=== PATIENT | female | born 1955 | race Caucasian/White ===

== ENCOUNTER 2018-07-01 14:27 | Inpatient (IN) | payer MEDICARE, MEDICAID ==
[~2018-07-01] VITALS: Ht 165.1 cm; Wt 116.8 kg
[~2018-07-01 14:27] MED LIST: AMLO2.5T2 PO; BECL7.3A INH; CETI10CA8 PO; DICY10CA88 PO; EST1T PO; ISOSORBIDE; LANTUS SUBCUT; LEVA15HF4 INH; METH500T PO; OMEP-84 PO; PARO10TA85 PO
[2018-07-01] MEDS ORDERED: morphine 4 MG/ML inj SYRINge IV ONE (14:35)
[2018-07-01] MEDS ORDERED: metoprolol tartrate 1mg/ml inj IV ONE (14:35)
[2018-07-01] MEDS: nitroGLYCERIN 0.4mg SUBLingual tab SL PRN ×2 (14:42→14:51)
[2018-07-01 14:48] LABS: BASOPHILS # (AUTO) 0.1 X10'3 (0-0.2); BASOPHILS % (AUTO) 1.6 % (0-1); EOSINOPHILS # (AUTO) 0.2 X10'3 (0-0.9); EOSINOPHILS % (AUTO) 2.4 % (0-6); HEMATOCRIT 47.2 % (35.0-45.0); HEMOGLOBIN 15.3 g/dl (12.0-16.0); LYMPHOCYTES # (AUTO) 1.4 X10'3 (1.1-4.8); LYMPHOCYTES % (AUTO) 19.4 % (21-51); MEAN CORPUSCULAR HGB CONC 32.4 % (33.0-36.5); MEAN CORPUSCULAR VOLUME 89.6 FL (78-98); MEAN PLATELET VOLUME 9.3 FL (7.4-10.4); MONOCYTES # (AUTO) 0.6 X10'3 (0-0.9); MONOCYTES % (AUTO) 8.2 % (2-12); NEUTROPHILS # (AUTO) 4.7 X10'3 (1.8-7.7); NEUTROPHILS % (AUTO) 68.4 % (42-75); PLATELET COUNT 260 X10'3 (140-440); RED BLOOD COUNT 5.27 X10'6 (4.20-5.60)
[2018-07-01] MEDS ORDERED: LORazepam 2 mg/ml vial IV ONE (14:55)
[2018-07-01 14:59] LABS: PARTIAL THROMBOPLASTIN TIME 27 SECONDS (22-32); PROTHROMBIN TIME 10.2 SECONDS (9.0-12.0)
[2018-07-01 15:03] LABS: ALANINE AMINOTRANSFERASE 14 U/L (12-78); ALBUMIN 3.5 G/DL (3.4-5.0); ALBUMIN/GLOBULIN RATIO 0.9 (1.1-1.5); ALKALINE PHOSPHATASE 90 IU/L (46-116); ANION GAP 6 (8-16); ASPARTATE AMINO TRANSFERASE 21 U/L (10-37); BILIRUBIN,TOTAL 0.4 MG/DL (0.1-1.0); BLOOD UREA NITROGEN 16 MG/DL (7-18); CALCIUM 9.6 MG/DL (8.5-10.1); CHLORIDE 103 MMOL/L (99-107); GLUCOSE 131 MG/DL (70-104); POTASSIUM 4.4 MMOL/L (3.5-5.1); SODIUM 136 MMOL/L (135-145); TOTAL CARBON DIOXIDE 27.4 MMOL/L (24-32); TOTAL PROTEIN 7.6 G/DL (6.4-8.2); eGFR 56 ML/MIN
[2018-07-01] MEDS ORDERED: nitroGLYCERIN 0.4mg SUBLingual tab SL PRN (17:05)
[2018-07-01] MEDS ORDERED: magnesium hydroxide 30ml (MOM) UD suspension PO PRN (17:05)
[2018-07-01] MEDS ORDERED: bisacodyl 10mg suppository rectal RC PRN (17:05)
[2018-07-01] MEDS ORDERED: dextrose 50%-water 50ml dispensing syringe IV PRN ×2 (18:50)
[2018-07-01] MEDS ORDERED: insulin Lispro (HumaLOG) vial - multi-dose SQ SCH (18:50)
[2018-07-01] MEDS ORDERED: MESSAGE TO PHARMACY PO ONE (18:50)
[2018-07-01] MEDS ORDERED: dextrose ORAL solution 15 GM/59 ML bottle PO PRN ×2 (18:50)
[2018-07-01] MEDS ORDERED: glucagon, human recombinant 1mg kit SUBCUT PRN (18:50)
[2018-07-01 19:18] VITALS: BP 178/66
[2018-07-01 19:22] LABS: HEMOGLOBIN A1C 6.8 % (4.5-6.2)
[2018-07-01] MEDS ORDERED: pneumococcal 23-VAL P-sac vacc 25 mcg/0.5ml vial IMVAC ONE (19:55)
[2018-07-01] MEDS: docusate sod 100mg capsule PO SCH (20:00)
[2018-07-01 22:00] VITALS: BP 182/79
[2018-07-01] MEDS ORDERED: albuterol 2.5 MG/3 ML nebule NEB PRN (22:20)
[2018-07-02 02:00] VITALS: BP 148/57
[2018-07-02 02:44] LABS: BASOPHILS % (AUTO) 0.4 % (0-1); EOSINOPHILS # (AUTO) 0.2 X10'3 (0-0.9); EOSINOPHILS % (AUTO) 2.6 % (0-6); HEMATOCRIT 44.3 % (35.0-45.0); HEMOGLOBIN 14.8 g/dl (12.0-16.0); LYMPHOCYTES # (AUTO) 1.7 X10'3 (1.1-4.8); LYMPHOCYTES % (AUTO) 23.4 % (21-51); MEAN CORPUSCULAR HGB CONC 33.4 % (33.0-36.5); MEAN CORPUSCULAR VOLUME 89.7 FL (78-98); MEAN PLATELET VOLUME 9.3 FL (7.4-10.4); MONOCYTES # (AUTO) 0.4 X10'3 (0-0.9); MONOCYTES % (AUTO) 5.8 % (2-12); NEUTROPHILS # (AUTO) 4.8 X10'3 (1.8-7.7); NEUTROPHILS % (AUTO) 67.8 % (42-75); PLATELET COUNT 256 X10'3 (140-440); RED BLOOD COUNT 4.94 X10'6 (4.20-5.60); RED CELL DISTRIBUTION WIDTH 12.8 % (11.5-14.5); WHITE BLOOD COUNT 7.1 X10'3 (4.5-11.0)
[2018-07-02 02:59] LABS: ALANINE AMINOTRANSFERASE 15 U/L (12-78); ALBUMIN 3.2 G/DL (3.4-5.0); ALBUMIN/GLOBULIN RATIO 0.8 (1.1-1.5); ALKALINE PHOSPHATASE 87 IU/L (46-116); ANION GAP 5 (8-16); ASPARTATE AMINO TRANSFERASE 18 U/L (10-37); BILIRUBIN,TOTAL 0.4 MG/DL (0.1-1.0); BLOOD UREA NITROGEN 15 MG/DL (7-18); BUN/CREATININE RATIO 15.5 (6.6-38.0); CALCIUM 9.3 MG/DL (8.5-10.1); CHLORIDE 104 MMOL/L (99-107); CREATININE 0.97 MG/DL (0.40-0.90); GLUCOSE 130 MG/DL (70-104); POTASSIUM 4.1 MMOL/L (3.5-5.1); SODIUM 137 MMOL/L (135-145); TOTAL CARBON DIOXIDE 28.1 MMOL/L (24-32); TOTAL PROTEIN 7.3 G/DL (6.4-8.2); eGFR 58 ML/MIN
[2018-07-02 07:39] VITALS: BP 140/66
[2018-07-02] MEDS: PARoxetine 10mg tablet PO SCH (07:47)
[2018-07-02] MEDS: estradiol 1mg tablet PO SCH (07:47)
[2018-07-02] MEDS: pantoprazole 40mg Tablet.DR PO SCH (07:47)
[2018-07-02] MEDS: docusate sod 100mg capsule PO SCH ×2 (07:47→19:51)
[2018-07-02] MEDS: enoxaparin 40mg/0.4ml syringe SQ SCH (07:48)
[2018-07-02] MEDS ORDERED: metoprolol succinate 25mg (24-HOUR) SR. Tablet PO SCH (08:00)
[2018-07-02] MEDS ORDERED: NIFEdipine XL 30mg tablet PO SCH (08:00)
[2018-07-02] MEDS: aspirin 325mg tablet PO SCH (08:30)
[2018-07-02] MEDS ORDERED: SIMV20TA5 PO (08:57)
[2018-07-02] MEDS ORDERED: CARCD120C PO (08:59)
[2018-07-02] MEDS ORDERED: IRBE300T19 PO (08:59)
[2018-07-02] MEDS ORDERED: albuterol 2.5 MG/3 ML nebule NEB PRN (09:05)
[2018-07-02] MEDS ORDERED: loratadine 10mg tablet PO PRN (09:05)
[2018-07-02] MEDS ORDERED: atorvastatin 10mg tablet PO SCH (09:10)
[2018-07-02] MEDS ORDERED: losartan 50mg tablet PO SCH (09:14)
[2018-07-02] MEDS: budesonide 0.5mg/2ml UD nebule IH SCH ×2 (10:25→20:12)
[2018-07-02 11:00] VITALS: BP 139/67
[2018-07-02] MEDS ORDERED: regadenoson 0.4mg/5ml syringe IV PRN (15:30)
[2018-07-02] MEDS ORDERED: CAFFEINE CITRATE 60 MG/3 ML injection vial IV PRN (15:30)
[2018-07-02] MEDS ORDERED: nitroGLYCERIN 0.4mg SUBLingual tab SL PRN (15:30)
[2018-07-02] MEDS ORDERED: metoprolol tartrate 1mg/ml inj IV PRN (15:30)
[2018-07-02] MEDS: acetaminophen 325mg tablet PO PRN ×2 (16:39→23:14)
[2018-07-02 16:49] VITALS: BP 153/62
[2018-07-02 18:00] VITALS: BP 178/78
[2018-07-02] MEDS ORDERED: insulin glargine (Lantus) pen - multi-dose SQ SCH (21:00)
[2018-07-02 22:00] VITALS: BP 170/69
[2018-07-03] VITALS (13 sets, daily range): BP systolic 120–177; BP diastolic 62–76
[2018-07-03 06:14] LABS: BASOPHILS % (AUTO) 0.5 % (0-1); EOSINOPHILS # (AUTO) 0.3 X10'3 (0-0.9); EOSINOPHILS % (AUTO) 3.7 % (0-6); HEMATOCRIT 43.2 % (35.0-45.0); HEMOGLOBIN 14.5 g/dl (12.0-16.0); LYMPHOCYTES # (AUTO) 1.7 X10'3 (1.1-4.8); LYMPHOCYTES % (AUTO) 23.6 % (21-51); MEAN CORPUSCULAR HEMOGLOBIN 29.9 PG (27.0-31.0); MEAN CORPUSCULAR HGB CONC 33.6 % (33.0-36.5); MONOCYTES # (AUTO) 0.6 X10'3 (0-0.9); MONOCYTES % (AUTO) 8.3 % (2-12); NEUTROPHILS # (AUTO) 4.5 X10'3 (1.8-7.7); NEUTROPHILS % (AUTO) 63.9 % (42-75); PLATELET COUNT 235 X10'3 (140-440); RED BLOOD COUNT 4.85 X10'6 (4.20-5.60); RED CELL DISTRIBUTION WIDTH 12.5 % (11.5-14.5)
[2018-07-03 06:23] LABS: ALANINE AMINOTRANSFERASE 13 U/L (12-78); ALBUMIN/GLOBULIN RATIO 0.8 (1.1-1.5); ALKALINE PHOSPHATASE 77 IU/L (46-116); ANION GAP 8 (8-16); ASPARTATE AMINO TRANSFERASE 21 U/L (10-37); BILIRUBIN,TOTAL 0.2 MG/DL (0.1-1.0); BLOOD UREA NITROGEN 16 MG/DL (7-18); BUN/CREATININE RATIO 18.2 (6.6-38.0); CALCIUM 9.1 MG/DL (8.5-10.1); CHLORIDE 104 MMOL/L (99-107); CREATININE 0.88 MG/DL (0.40-0.90); GLUCOSE 134 MG/DL (70-104); SODIUM 140 MMOL/L (135-145); TOTAL CARBON DIOXIDE 28.5 MMOL/L (24-32); TOTAL PROTEIN 6.9 G/DL (6.4-8.2); eGFR 64 ML/MIN
[2018-07-03 06:24] LABS: POTASSIUM 4.2 MMOL/L (3.5-5.1)
[2018-07-03] MEDS: pantoprazole 40mg Tablet.DR PO SCH (07:47)
[2018-07-03] MEDS: estradiol 1mg tablet PO SCH (07:47)
[2018-07-03] MEDS: docusate sod 100mg capsule PO SCH ×2 (07:47→20:00)
[2018-07-03] MEDS: PARoxetine 10mg tablet PO SCH (07:47)
[2018-07-03] MEDS: enoxaparin 40mg/0.4ml syringe SQ SCH (07:47)
[2018-07-03] MEDS: aspirin 325mg tablet PO SCH (07:49)
[2018-07-03] MEDS ORDERED: SIMVASTATIN 20 MG PO SCH ×2 (08:00→14:15)
[2018-07-03] MEDS ORDERED: IRBESARTAN 300MG PO SCH (08:00)
[2018-07-03] MEDS: budesonide 0.5mg/2ml UD nebule IH SCH ×2 (08:06→19:44)
[2018-07-03] MEDS ORDERED: CAFFEINE CITRATE 60 MG/3 ML injection vial IV ONE (12:30)
[2018-07-03] MEDS ORDERED: regadenoson 0.4mg/5ml syringe IV ONE (12:30)
== END 2018-07-03 19:45 | disposition home or self-care (01) | DRG 305 ==
LOC: ER 14:27 → ED HOLD 17:01 → PCU 3S 19:16
PROVIDERS: ADMIT Emergency Medicine; ATTEND Internal Medicine
PROC: 4A02XM4 Measurement of Cardiac Total Activity, External Approach (ICD-10-PCS; principal; 2018-07-03)
PROC: 3E033HZ Introduction of Radioactive Substance into Peripheral Vein, Percutaneous Approach (ICD-10-PCS; 2018-07-03)
DX: I16.0 Hypertensive urgency (principal); Z68.41 Body mass index [BMI] 40.0-44.9, adult; R07.89 Other chest pain; F41.9 Anxiety disorder, unspecified; F32.9 Major depressive disorder, single episode, unspecified; E66.01 Morbid (severe) obesity due to excess calories; R00.1 Bradycardia, unspecified; E11.9 Type 2 diabetes mellitus without complications; K21.9 Gastro-esophageal reflux disease without esophagitis; I10 Essential (primary) hypertension; J45.909 Unspecified asthma, uncomplicated; Z90.49 Acquired absence of other specified parts of digestive tract; Z23 Encounter for immunization; Z88.2 Allergy status to sulfonamides; Z88.8 Allergy status to other drugs, medicaments and biological substances; Z91.011 Allergy to milk products; Z88.5 Allergy status to narcotic agent; Z91.013 Allergy to seafood; Z79.4 Long term (current) use of insulin; Z79.899 Other long term (current) drug therapy; Z87.891 Personal history of nicotine dependence
CPT/HCPCS: 36415; 71045; 78452; 80053; 82948; 83036; 83880; 84484; 85025; 85610; 85730; 87070; 93005; 93017; 94640; 94760; 96374; 96375; 99285; A9500; J1650; J1815; J2060; J2270; J3490; J7626

== ENCOUNTER 2019-06-07 14:06 | Emergency (ER) | payer MEDICARE, MEDICAID ==
[~2019-06-07] VITALS: Ht 165.1 cm; Wt 122.7 kg
[~2019-06-07 14:06] MED LIST changes: -AMLO2.5T2 PO; +CARCD120C PO; -DICY10CA88 PO; +IRBE300T19 PO; -ISOSORBIDE; -METH500T PO; +SIMV20TA5 PO
[2019-06-07] MEDS ORDERED: DOXY100C43 PO (16:16)
[2019-06-07 16:32] VITALS: BP 162/73
== END 2019-06-07 16:35 | disposition home or self-care (01) ==
LOC: ER 14:07
DX: L03.116 Cellulitis of left lower limb (principal); I10 Essential (primary) hypertension; J45.909 Unspecified asthma, uncomplicated; E11.9 Type 2 diabetes mellitus without complications; F41.9 Anxiety disorder, unspecified; Z90.49 Acquired absence of other specified parts of digestive tract; Z98.890 Other specified postprocedural states; Z88.2 Allergy status to sulfonamides; Z88.5 Allergy status to narcotic agent; Z91.013 Allergy to seafood; Z91.018 Allergy to other foods; Z79.4 Long term (current) use of insulin; Z79.899 Other long term (current) drug therapy
CPT/HCPCS: 73630; 99283

== ENCOUNTER 2019-09-18 13:49 | Emergency (ER) | payer MEDICARE, MEDICAID ==
[~2019-09-18] VITALS: Ht 167.6 cm; Wt 109.1 kg
[2019-09-18] MEDS ORDERED: normal saline 1000ML IV soln IVB ONE ×2 (14:25→14:55)
[2019-09-18] MEDS ORDERED: LORazepam 2 mg/ml vial IV ONE (14:35)
[2019-09-18] MEDS ORDERED: diphenhydrAMINE 50 mg/ml inj IV ONE (14:35)
[2019-09-18] MEDS ORDERED: metoclopramide 5 mg/ml inj IV ONE (14:35)
[2019-09-18 14:37] LABS: CLARITY,URINE CLOUDY (Clear); COLOR,URINE YELLOW (Yellow); GLUCOSE, URINE NEGATIVE (Neg); KETONES,URINE NEGATIVE (Neg); LEUKOCYTE ESTERASE ,URINE NEGATIVE (Neg); NITRITES, URINE NEGATIVE (Neg); OCCULT BLOOD,URINE NEGATIVE (Neg); PROTEIN,URINE NEGATIVE (Neg); UA COLLECTION TYPE CLN CATCH MIDSTREAM; UROBILINOGEN,URINE 0.2 E.U/dL (0.2-1.0)
[2019-09-18 14:37] LABS: BASOPHILS # (AUTO) 0.1 X10'3 (0-0.2); EOSINOPHILS % (AUTO) 0.6 % (0-6); HEMATOCRIT 47.6 % (35.0-45.0); HEMOGLOBIN 16.1 g/dl (12.0-16.0); LYMPHOCYTES % (AUTO) 11.4 % (21-51); MEAN CORPUSCULAR HEMOGLOBIN 30.3 PG (27.0-31.0); MEAN CORPUSCULAR HGB CONC 33.8 g/dL (33.0-36.5); MEAN CORPUSCULAR VOLUME 89.6 FL (78-98); MEAN PLATELET VOLUME 9.4 FL (7.4-10.4); MONOCYTES # (AUTO) 0.6 X10'3 (0-0.9); MONOCYTES % (AUTO) 6.7 % (2-12); NEUTROPHILS # (AUTO) 6.8 X10'3 (1.8-7.7); NEUTROPHILS % (AUTO) 80.3 % (42-75); PLATELET COUNT 296 X10'3 (140-440); RED BLOOD COUNT 5.31 X10'6 (4.20-5.60); RED CELL DISTRIBUTION WIDTH 12.8 % (11.5-14.5); WHITE BLOOD COUNT 8.5 X10'3 (4.5-11.0)
[2019-09-18 14:43] LABS: BACTERIA,URINE FEW /HPF (Neg); MUCUS STRANDS FEW /LPF (Neg); RBC,URINE 0-2 /HPF (0-2); SQUAMOUS EPITHELIAL CELL,UR MODERATE /LPF (FEW); WBC,URINE 0-4 /HPF (0-4)
[2019-09-18 14:53] LABS: ALANINE AMINOTRANSFERASE 13 U/L (12-78); ALBUMIN 3.7 G/DL (3.4-5.0); ALBUMIN/GLOBULIN RATIO 0.8 (1.1-1.5); ALKALINE PHOSPHATASE 102 IU/L (46-116); ASPARTATE AMINO TRANSFERASE 31 U/L (10-37); BILIRUBIN,TOTAL 0.5 MG/DL (0.1-1.0); BLOOD UREA NITROGEN 14 MG/DL (7-18); BUN/CREATININE RATIO 14.9 (6.6-38.0); CALCIUM 9.5 MG/DL (8.5-10.1); CREATININE 0.94 MG/DL (0.40-0.90); GLUCOSE 204 MG/DL (70-104); TOTAL CARBON DIOXIDE 25.5 MMOL/L (24-32); TOTAL PROTEIN 8.2 G/DL (6.4-8.2); eGFR 60 ML/MIN
[2019-09-18 15:00] LABS: PARTIAL THROMBOPLASTIN TIME 31 SECONDS (22-32)
[2019-09-18 15:04] LABS: ANION GAP 10 (8-16); CHLORIDE 103 MMOL/L (99-107); SODIUM 138 MMOL/L (135-145)
[2019-09-18] MEDS ORDERED: ONDA4TAB12 PO (16:31)
[2019-09-18 16:51] VITALS: BP 170/98
== END 2019-09-18 16:52 | disposition home or self-care (01) ==
LOC: ER 13:50
DX: E86.0 Dehydration (principal); R53.1 Weakness; R42 Dizziness and giddiness; R11.0 Nausea; I10 Essential (primary) hypertension; J45.909 Unspecified asthma, uncomplicated; E11.9 Type 2 diabetes mellitus without complications; F41.9 Anxiety disorder, unspecified; R79.1 Abnormal coagulation profile; Z90.49 Acquired absence of other specified parts of digestive tract; Z90.89 Acquired absence of other organs; Z88.2 Allergy status to sulfonamides; Z88.5 Allergy status to narcotic agent; Z91.011 Allergy to milk products; Z91.013 Allergy to seafood; Z91.018 Allergy to other foods; Z79.4 Long term (current) use of insulin; Z79.899 Other long term (current) drug therapy
CPT/HCPCS: 36415; 71045; 80053; 81001; 84443; 84484; 85025; 85610; 85730; 93005; 96361; 96374; 96375; 99284; J1200; J2060; J2765; J7030

== ENCOUNTER 2020-01-07 11:49 | Emergency (ER) | payer MEDICARE, MEDICAID ==
[~2020-01-07] VITALS: Ht 167.6 cm; Wt 110.9 kg
[~2020-01-07 11:49] MED LIST changes: +IRBE300T18 PO; -IRBE300T19 PO; +ONDA4TAB12 PO; +SIMV-42 PO; -SIMV20TA5 PO
[2020-01-07] MEDS ORDERED: acetaminophen 325mg tablet PO ONE (12:10)
[2020-01-07 12:37] LABS: BASOPHILS # (AUTO) 0.1 X10'3 (0-0.2); BASOPHILS % (AUTO) 1.2 % (0-1); EOSINOPHILS # (AUTO) 0.1 X10'3 (0-0.9); EOSINOPHILS % (AUTO) 1.6 % (0-6); HEMATOCRIT 45.1 % (35.0-45.0); LYMPHOCYTES # (AUTO) 1.1 X10'3 (1.1-4.8); LYMPHOCYTES % (AUTO) 16.6 % (21-51); MEAN CORPUSCULAR HEMOGLOBIN 29.6 PG (27.0-31.0); MEAN CORPUSCULAR HGB CONC 33.3 g/dL (33.0-36.5); MEAN CORPUSCULAR VOLUME 88.9 FL (78-98); MEAN PLATELET VOLUME 9.1 FL (7.4-10.4); MONOCYTES # (AUTO) 0.6 X10'3 (0-0.9); MONOCYTES % (AUTO) 8.2 % (2-12); NEUTROPHILS % (AUTO) 72.4 % (42-75); PLATELET COUNT 292 X10'3 (140-440); RED BLOOD COUNT 5.08 X10'6 (4.20-5.60); WHITE BLOOD COUNT 6.9 X10'3 (4.5-11.0)
[2020-01-07 12:38] LABS: CLARITY,URINE CLEAR (Clear); COLOR,URINE STRAW (Yellow); GLUCOSE, URINE NEGATIVE (Neg); KETONES,URINE NEGATIVE (Neg); LEUKOCYTE ESTERASE ,URINE NEGATIVE (Neg); NITRITES, URINE NEGATIVE (Neg); OCCULT BLOOD,URINE NEGATIVE (Neg); PROTEIN,URINE NEGATIVE (Neg); UA COLLECTION TYPE CLN CATCH MIDSTREAM; UROBILINOGEN,URINE 0.2 E.U/dL (0.2-1.0)
[2020-01-07 12:51] LABS: ALANINE AMINOTRANSFERASE 13 U/L (12-78); ALBUMIN 3.5 G/DL (3.4-5.0); ALBUMIN/GLOBULIN RATIO 0.9 (1.1-1.5); ALKALINE PHOSPHATASE 105 IU/L (46-116); ANION GAP 5 (8-16); ASPARTATE AMINO TRANSFERASE 22 U/L (10-37); BILIRUBIN,TOTAL 0.4 MG/DL (0.1-1.0); BLOOD UREA NITROGEN 13 MG/DL (7-18); BUN/CREATININE RATIO 13.8 (6.6-38.0); CALCIUM 8.9 MG/DL (8.5-10.1); CHLORIDE 105 MMOL/L (99-107); CREATININE 0.94 MG/DL (0.40-0.90); GLUCOSE 113 MG/DL (70-104); POTASSIUM 3.5 MMOL/L (3.5-5.1); SODIUM 142 MMOL/L (135-145); TOTAL CARBON DIOXIDE 32.2 MMOL/L (24-32); TOTAL PROTEIN 7.5 G/DL (6.4-8.2); eGFR 60 ML/MIN
[2020-01-07 12:55] LABS: TROPONIN I 0.05 NG/ML (0.0-0.05)
[2020-01-07] MEDS ORDERED: metoprolol tartrate 1mg/ml inj IV ONE (13:20)
[2020-01-07 14:54] VITALS: BP 191/72
== END 2020-01-07 14:54 | disposition home or self-care (01) ==
LOC: ER 11:49
DX: I10 Essential (primary) hypertension (principal); E86.0 Dehydration; J45.909 Unspecified asthma, uncomplicated; E11.9 Type 2 diabetes mellitus without complications; F41.9 Anxiety disorder, unspecified; Z90.49 Acquired absence of other specified parts of digestive tract; Z98.890 Other specified postprocedural states; Z88.2 Allergy status to sulfonamides; Z88.5 Allergy status to narcotic agent; Z91.011 Allergy to milk products; Z91.013 Allergy to seafood; Z91.018 Allergy to other foods; Z79.4 Long term (current) use of insulin; Z79.899 Other long term (current) drug therapy
CPT/HCPCS: 36415; 70450; 71045; 80053; 81003; 82948; 84484; 85025; 93005; 96374; 99285; J3490

== ENCOUNTER 2020-08-19 10:25 | Emergency (ER) | payer MEDICARE, MEDICAID ==
[~2020-08-19] VITALS: Ht 162.6 cm; Wt 109.1 kg
[2020-08-19] MEDS ORDERED: ondansetron/PF 4mg/2ml inj IV ONE (10:45)
[2020-08-19] MEDS ORDERED: morphine 4 MG/ML inj SYRINge IV PRN (10:45)
[2020-08-19] MEDS ORDERED: normal saline 1000ML IV soln IVB ONE (10:45)
[2020-08-19 11:00] LABS: BASOPHILS # (AUTO) 0.1 X10'3 (0-0.2); EOSINOPHILS # (AUTO) 0.2 X10'3 (0-0.9); NEUTROPHILS # (AUTO) 5.8 X10'3 (1.8-7.7)
[2020-08-19 11:02] LABS: BASOPHILS % (AUTO) 0.9 % (0-1); EOSINOPHILS % (AUTO) 2.9 % (0-6); HEMATOCRIT 47.1 % (35.0-45.0); LYMPHOCYTES # (AUTO) 1.2 X10'3 (1.1-4.8); LYMPHOCYTES % (AUTO) 15.4 % (21-51); MEAN CORPUSCULAR HEMOGLOBIN 30.5 PG (27.0-31.0); MEAN CORPUSCULAR HGB CONC 33.9 g/dL (33.0-36.5); MEAN PLATELET VOLUME 9.4 FL (7.4-10.4); MONOCYTES # (AUTO) 0.6 X10'3 (0-0.9); MONOCYTES % (AUTO) 7.7 % (2-12); NEUTROPHILS % (AUTO) 73.1 % (42-75); PLATELET COUNT 304 X10'3 (140-440); RED BLOOD COUNT 5.23 X10'6 (4.20-5.60); RED CELL DISTRIBUTION WIDTH 13.3 % (11.5-14.5)
[2020-08-19 11:14] LABS: ALANINE AMINOTRANSFERASE 18 U/L (12-78); ALBUMIN 3.8 G/DL (3.4-5.0); ALBUMIN/GLOBULIN RATIO 0.9 (1.1-1.5); ALKALINE PHOSPHATASE 123 IU/L (46-116); ANION GAP 9 (8-16); ASPARTATE AMINO TRANSFERASE 20 U/L (10-37); BILIRUBIN,TOTAL 0.3 MG/DL (0.1-1.0); BLOOD UREA NITROGEN 18 MG/DL (7-18); BUN/CREATININE RATIO 18.4 (6.6-38.0); CALCIUM 9.1 MG/DL (8.5-10.1); CHLORIDE 104 MMOL/L (99-107); CREATININE 0.98 MG/DL (0.40-0.90); GLUCOSE 140 MG/DL (70-104); LIPASE 126 U/L (73-393); POTASSIUM 4.1 MMOL/L (3.5-5.1); SODIUM 139 MMOL/L (135-145); TOTAL CARBON DIOXIDE 26.3 MMOL/L (24-32); TOTAL PROTEIN 7.9 G/DL (6.4-8.2); eGFR 57 ML/MIN
[2020-08-19 13:18] LABS: CLARITY,URINE SLIGHTLY CLOUDY (Clear); COLOR,URINE YELLOW (Yellow); GLUCOSE, URINE NEGATIVE (Neg); KETONES,URINE NEGATIVE (Neg); LEUKOCYTE ESTERASE ,URINE NEGATIVE (Neg); NITRITES, URINE NEGATIVE (Neg); OCCULT BLOOD,URINE NEGATIVE (Neg); PH,URINE 6.5 (4.8-8.0); PROTEIN,URINE NEGATIVE (Neg); UROBILINOGEN,URINE 0.2 E.U/dL (0.2-1.0)
[2020-08-19 13:24] LABS: UA COLLECTION TYPE CLN CATCH MIDSTREAM
[2020-08-19 13:25] LABS: SQUAMOUS EPITHELIAL CELL,UR MANY /LPF (FEW)
[2020-08-19 13:26] LABS: BACTERIA,URINE 1+ /HPF (Neg)
[2020-08-19 13:27] LABS: RBC,URINE 0-2 /HPF (0-2); WBC,URINE 0-4 /HPF (0-4)
[2020-08-19] MEDS ORDERED: NAPR-1154 PO (13:47)
[2020-08-19 15:09] VITALS: BP 161/74
== END 2020-08-19 15:13 | disposition home or self-care (01) ==
LOC: ER 10:26
DX: M54.6 Pain in thoracic spine (principal); R10.9 Unspecified abdominal pain; R11.0 Nausea; I10 Essential (primary) hypertension; J45.909 Unspecified asthma, uncomplicated; E11.9 Type 2 diabetes mellitus without complications; F41.9 Anxiety disorder, unspecified; Z90.49 Acquired absence of other specified parts of digestive tract; Z90.89 Acquired absence of other organs; Z88.2 Allergy status to sulfonamides; Z88.5 Allergy status to narcotic agent; Z88.8 Allergy status to other drugs, medicaments and biological substances; Z79.4 Long term (current) use of insulin; Z79.899 Other long term (current) drug therapy
CPT/HCPCS: 36415; 74176; 80053; 81001; 83690; 85025; 96361; 96374; 99284; J2405; J7030

== ENCOUNTER 2021-01-23 15:13 | Emergency (ER) | payer MEDICARE, MEDICAID ==
[~2021-01-23] VITALS: Ht 167.6 cm; Wt 111.5 kg
[~2021-01-23 15:13] MED LIST changes: +NAPR-1154 PO
[2021-01-23 16:24] VITALS: BP 213/80
[2021-01-23 17:06] LABS: BASOPHILS # (AUTO) 0.1 X10'3 (0-0.2); EOSINOPHILS # (AUTO) 0.1 X10'3 (0-0.9); EOSINOPHILS % (AUTO) 0.9 % (0-6); HEMATOCRIT 46.4 % (35.0-45.0); HEMOGLOBIN 15.3 g/dl (12.0-16.0); LYMPHOCYTES # (AUTO) 1.1 X10'3 (1.1-4.8); MEAN CORPUSCULAR HEMOGLOBIN 29.4 PG (27.0-31.0); MEAN CORPUSCULAR HGB CONC 33.1 g/dL (33.0-36.5); MEAN CORPUSCULAR VOLUME 88.8 FL (78-98); MONOCYTES # (AUTO) 0.6 X10'3 (0-0.9); MONOCYTES % (AUTO) 8.2 % (2-12); NEUTROPHILS % (AUTO) 73.9 % (42-75); PLATELET COUNT 247 X10'3 (140-440); RED BLOOD COUNT 5.22 X10'6 (4.20-5.60); WHITE BLOOD COUNT 6.8 X10'3 (4.5-11.0)
[2021-01-23 17:21] LABS: ALANINE AMINOTRANSFERASE 17 U/L (12-78); ALBUMIN 3.5 G/DL (3.4-5.0); ALBUMIN/GLOBULIN RATIO 0.8 (1.1-1.5); ALKALINE PHOSPHATASE 110 IU/L (46-116); ANION GAP 7 (8-16); ASPARTATE AMINO TRANSFERASE 26 U/L (10-37); BILIRUBIN,TOTAL 0.2 MG/DL (0.1-1.0); BLOOD UREA NITROGEN 14 MG/DL (7-18); BUN/CREATININE RATIO 15.2 (6.6-38.0); CALCIUM 9.5 MG/DL (8.5-10.1); CHLORIDE 107 MMOL/L (99-107); CREATININE 0.92 MG/DL (0.40-0.90); GLUCOSE 139 MG/DL (70-104); POTASSIUM 4.3 MMOL/L (3.5-5.1); SODIUM 142 MMOL/L (135-145); TOTAL CARBON DIOXIDE 28.1 MMOL/L (24-32); TOTAL PROTEIN 7.9 G/DL (6.4-8.2); eGFR 61 ML/MIN
== END 2021-01-23 18:50 | disposition home or self-care (01) ==
LOC: ER 15:15
DX: R06.02 Shortness of breath (principal); R19.7 Diarrhea, unspecified; I10 Essential (primary) hypertension; J45.909 Unspecified asthma, uncomplicated; E11.9 Type 2 diabetes mellitus without complications; Z00.00 Encounter for general adult medical examination without abnormal findings; Z90.49 Acquired absence of other specified parts of digestive tract; Z98.890 Other specified postprocedural states; Z87.891 Personal history of nicotine dependence; Z88.2 Allergy status to sulfonamides; Z91.013 Allergy to seafood; Z91.011 Allergy to milk products; Z91.018 Allergy to other foods; Z88.8 Allergy status to other drugs, medicaments and biological substances; Z91.041 Radiographic dye allergy status; Z79.4 Long term (current) use of insulin; Z79.899 Other long term (current) drug therapy
CPT/HCPCS: 36415; 71045; 80053; 85025; 93005; 99285

== ENCOUNTER 2021-10-04 16:54 | Inpatient (IN) | payer MEDICARE, MEDICAID ==
[~2021-10-04] VITALS: Ht 167.6 cm; Wt 113.6 kg
[2021-10-04] MEDS ORDERED: dexamethasone sod phosphate 10mg/ml inj IV STA (17:22)
[2021-10-04 17:40] LABS: EOSINOPHILS % (AUTO) 0 % (0-6); MONOCYTES # (AUTO) 0.4 X10'3 (0-0.9); NEUTROPHILS # (AUTO) 4.2 X10'3 (1.8-7.7)
[2021-10-04 17:43] LABS: BASOPHILS % (AUTO) 0.4 % (0-1); HEMATOCRIT 44.1 % (35.0-45.0); HEMOGLOBIN 14.8 g/dl (12.0-16.0); LYMPHOCYTES # (AUTO) 0.4 X10'3 (1.1-4.8); LYMPHOCYTES % (AUTO) 7.3 % (21-51); MEAN CORPUSCULAR HEMOGLOBIN 29.9 PG (27.0-31.0); MEAN CORPUSCULAR HGB CONC 33.7 g/dL (33.0-36.5); MEAN CORPUSCULAR VOLUME 88.7 FL (78-98); MEAN PLATELET VOLUME 9.6 FL (7.4-10.4); MONOCYTES % (AUTO) 8.5 % (2-12); NEUTROPHILS % (AUTO) 83.8 % (42-75); PLATELET COUNT 202 X10'3 (140-440); RED BLOOD COUNT 4.97 X10'6 (4.20-5.60); RED CELL DISTRIBUTION WIDTH 13.4 % (11.5-14.5)
[2021-10-04 17:45] LABS: ALANINE AMINOTRANSFERASE 15 U/L (12-78); ALBUMIN 2.7 G/DL (3.4-5.0); ALBUMIN/GLOBULIN RATIO 0.6 (1.1-1.5); ALKALINE PHOSPHATASE 92 IU/L (46-116); ANION GAP 8 (8-16); ASPARTATE AMINO TRANSFERASE 57 U/L (10-37); BILIRUBIN,TOTAL 0.5 MG/DL (0.1-1.0); BLOOD UREA NITROGEN 12 MG/DL (7-18); CALCIUM 8.4 MG/DL (8.5-10.1); CHLORIDE 105 MMOL/L (99-107); CREATININE 1.09 MG/DL (0.40-0.90); GLUCOSE 211 MG/DL (70-104); SODIUM 141 MMOL/L (135-145); TOTAL CARBON DIOXIDE 27.8 MMOL/L (24-32); TOTAL PROTEIN 6.9 G/DL (6.4-8.2); eGFR 50 ML/MIN
[2021-10-04 17:51] LABS: D-DIMER 1.37 MG/L FEU (0-0.50)
[2021-10-04 17:53] LABS: C-REACTIVE PROTEIN 10.88 MG/DL (0.0-0.5)
[2021-10-04] MEDS ORDERED: aspirin 81mg tab.chew PO ONE (18:00)
[2021-10-04] MEDS ORDERED: iohexol 350MG/ML 100ml bottle IV ONE (18:53)
[2021-10-04] MEDS ORDERED: ESTR1PAT30 TD (19:22)
[2021-10-04] MEDS ORDERED: ondansetron 4mg rapidly disintigrating tab PO PRN (20:45)
[2021-10-04] MEDS ORDERED: diphenhydrAMINE 50 mg/ml inj IV PRN (20:45)
[2021-10-04] MEDS ORDERED: bisacodyl 10mg suppository rectal RC PRN (20:45)
[2021-10-04] MEDS ORDERED: diphenhydrAMINE 25mg capsule PO PRN (20:45)
[2021-10-04] MEDS ORDERED: MESSAGE TO PHARMACY PO ONE (20:50)
[2021-10-04] MEDS ORDERED: glucagon, human recombinant 1mg kit SUBCUT PRN (20:50)
[2021-10-04] MEDS ORDERED: dextrose 50%-water 50ml dispensing syringe IV PRN ×2 (20:50)
[2021-10-04] MEDS ORDERED: dextrose ORAL solution 15 GM/59 ML bottle PO PRN ×2 (20:50)
[2021-10-04] MEDS ORDERED: ALBUTEROL INHALER 1 PUFF/90 MCG INHALER IH PRN (20:50)
[2021-10-04] MEDS ORDERED: CefTRIAXone/D5W-Rocephin 1gm 50 ML IV SCH (20:56)
[2021-10-04] MEDS ORDERED: azithromycin/NS 500mg/250ml 250 ML IV SCH (20:57)
[2021-10-04] MEDS ORDERED: temazepam 15mg capsule PO PRN (21:00)
[2021-10-04 21:09] LABS: HEMOGLOBIN A1C 7.1 % (4.5-6.2)
[2021-10-04 21:11] LABS: PARTIAL THROMBOPLASTIN TIME 31 SECONDS (22-32)
[2021-10-04 21:12] LABS: CREATINE KINASE 95 U/L (26-192); LIPASE 86 U/L (73-393); MAGNESIUM 2.1 MG/DL (1.5-2.4); PHOSPHORUS 3.5 MG/DL (2.3-4.5)
[2021-10-04] MEDS: normal saline 1000ml 1,000 ML IV SCH (21:18)
[2021-10-04] MEDS: enoxaparin 40mg/0.4ml syringe SUBCUT SCH (21:19)
[2021-10-04] MEDS ORDERED: RISP0.5T45 PO (21:47)
[2021-10-04] MEDS ORDERED: CHOL20002 PO (21:47)
[2021-10-04] MEDS ORDERED: DILT-91 PO (21:47)
[2021-10-04] MEDS ORDERED: BUPR-317 PO (21:47)
[2021-10-04] MEDS ORDERED: FLUO-167 PO (21:47)
[2021-10-04] MEDS ORDERED: SIMV10TA98 PO (21:47)
[2021-10-04] MEDS ORDERED: CETI-272 PO (21:48)
--- NOTE | 2021-10-04 22:00 | NUR ---
pt was repositioned and given hospital gown. pt ambulated to bedside commode and then was transferred onto hospital bed
[2021-10-04] MEDS: insulin glargine (Lantus) pen - multi-dose SQ SCH (22:01)
[2021-10-04] MEDS: losartan 25mg tablet PO SCH (23:00)
[2021-10-05] VITALS (7 sets, daily range): BP systolic 121–158; BP diastolic 60–67
--- NOTE | 2021-10-05 00:42 | NUR ---
Pt would like to get the COVID vaccine if possible.
--- NOTE | 2021-10-05 01:17 | NUR ---
Pt has estrodial patch on L buttock.
[2021-10-05 06:25] LABS: BASOPHILS % (AUTO) 0.4 % (0-1); EOSINOPHILS % (AUTO) 0 % (0-6); HEMOGLOBIN 15.1 g/dl (12.0-16.0); LYMPHOCYTES # (AUTO) 0.3 X10'3 (1.1-4.8); MEAN CORPUSCULAR HGB CONC 33.8 g/dL (33.0-36.5); MEAN PLATELET VOLUME 10.1 FL (7.4-10.4); MONOCYTES # (AUTO) 0.3 X10'3 (0-0.9); NEUTROPHILS # (AUTO) 3.3 X10'3 (1.8-7.7); WHITE BLOOD COUNT 3.9 X10'3 (4.5-11.0)
[2021-10-05 06:28] LABS: HEMATOCRIT 44.6 % (35.0-45.0); LYMPHOCYTES % (AUTO) 7.7 % (21-51); MEAN CORPUSCULAR HEMOGLOBIN 30.2 PG (27.0-31.0); MEAN CORPUSCULAR VOLUME 89.4 FL (78-98); MONOCYTES % (AUTO) 7.5 % (2-12); NEUTROPHILS % (AUTO) 84.4 % (42-75); PLATELET COUNT 212 X10'3 (140-440); RED BLOOD COUNT 4.99 X10'6 (4.20-5.60); RED CELL DISTRIBUTION WIDTH 13.3 % (11.5-14.5)
[2021-10-05 06:36] LABS: ALANINE AMINOTRANSFERASE 15 U/L (12-78); ALBUMIN 2.6 G/DL (3.4-5.0); ALBUMIN/GLOBULIN RATIO 0.6 (1.1-1.5); ALKALINE PHOSPHATASE 100 IU/L (46-116); ANION GAP 10 (8-16); ASPARTATE AMINO TRANSFERASE 56 U/L (10-37); BILIRUBIN,TOTAL 0.4 MG/DL (0.1-1.0); BLOOD UREA NITROGEN 17 MG/DL (7-18); CALCIUM 8.7 MG/DL (8.5-10.1); CHLORIDE 105 MMOL/L (99-107); CHOL/HDL RATIO 1.9 (0.00-4.99); CHOLESTEROL 68 MG/DL (0-200); CREATININE 1.13 MG/DL (0.40-0.90); GLUCOSE 259 MG/DL (70-104); HDL CHOLESTEROL 36 MG/DL (35-60); LDL CHOLESTEROL 23 MG/DL (50-100); POTASSIUM 4.2 MMOL/L (3.5-5.1); SODIUM 143 MMOL/L (135-145); TOTAL CARBON DIOXIDE 27.6 MMOL/L (24-32); TOTAL PROTEIN 7.2 G/DL (6.4-8.2); TRIGLYCERIDES 92 MG/DL (20-135); eGFR 48 ML/MIN
[2021-10-05] MEDS: atorvastatin 10mg tablet PO SCH (07:38)
[2021-10-05] MEDS: aspirin 81mg, enteric-coated 1 TAB TABLET.DR PO SCH (07:39)
[2021-10-05] MEDS: docusate sod 100mg capsule PO SCH ×2 (07:39→20:39)
[2021-10-05] MEDS: diltiazem CD 180mg cap (once-daily) PO SCH (07:39)
[2021-10-05] MEDS: buPROPion SR 150mg tablet PO SCH (07:39)
[2021-10-05] MEDS: FLUoxetine 20mg capsule PO SCH (07:39)
[2021-10-05] MEDS: pantoprazole 40mg Tablet.DR PO SCH (07:40)
[2021-10-05] MEDS: furosemide 20 MG/2 ML vial IV SCH ×3 (07:40→20:57)
[2021-10-05] MEDS: enoxaparin 40mg/0.4ml syringe SUBCUT SCH ×2 (07:41→20:40)
[2021-10-05] MEDS: dexamethasone 6 MG/D5W 100ml IV.soln (total 101.5ml) IV SCH ×4 (07:53→20:33)
[2021-10-05] MEDS: nitroGLYCERIN 0.2mg/hour patch TD SCH (07:56)
[2021-10-05] MEDS: losartan 25mg tablet PO SCH (07:56)
[2021-10-05] MEDS ORDERED: dexamethasone 4mg/ml inj IV SCH (08:00)
[2021-10-05] MEDS ORDERED: risperiDONE 0.5mg tablet PO SCH (08:00)
[2021-10-05] MEDS ORDERED: FLU VACC QS2021-22(6MOS UP)/PF 60 MCG/0.5 ML SYRINGE IM ONE (09:00)
[2021-10-05] MEDS: insulin Lispro (HumaLOG) vial - multi-dose SQ SCH ×3 (10:02→19:20)
--- NOTE | 2021-10-05 10:28 | NUR ---
MD aware that patient refused nitro patch, cozaar, and lasix during this AM's med pass.
[2021-10-05] MEDS: BARICITINIB 2 MG TABLET PO SCH (11:22)
[2021-10-05] MEDS: cholecalciferol (vitamin D3) 1,000 unit (25mcg) tablet PO SCH (11:22)
[2021-10-05] MEDS: mag hydrox/Alum hydrox/simeth 30ml oral suspension PO PRN ×2 (11:27→22:39)
--- NOTE | 2021-10-05 14:17 | NUR ---
Diabetes consult: Pt admitted w/ ARF w/ hypoxemia secondary to Covid, currently on 15L nonrebreather Per EMR. Noted A1C 7.1, defer education until pt more appropriate. Addendum: 10/05/21 at [address] Amended: Links added.
--- NOTE | 2021-10-05 18:45 | NUR ---
Problems reprioritized. Patient report given, questions answered & plan of care reviewed with RIKKI Fitzgerald
[2021-10-05] MEDS: nystatin 15 GM powder TP SCH (20:41)
[2021-10-05] MEDS: risperiDONE 0.5mg tablet PO SCH (20:53)
[2021-10-05] MEDS: insulin glargine (Lantus) pen - multi-dose SQ SCH (22:31)
[2021-10-06 02:00] VITALS: BP 152/72
--- NOTE | 2021-10-06 04:51 | NUR ---
NOTIFIED DR RYAN THAT PT ADMITTED WITH COVID PNA AND HAS BEEN IN SR BUT TELE ORDER SAYS ADMIT TO PCU /TELEMETRY AND ORDER DAYS TO DC TELEMETRY AFTER 24 HOURS AND IT HAS BEEN 24 HOURS. INSTRUCTED TO CONTINUE TELE MONITORING
[2021-10-06 06:00] VITALS: BP 165/78
[2021-10-06 06:48] LABS: BASOPHILS % (AUTO) 0.2 % (0-1); EOSINOPHILS % (AUTO) 0 % (0-6); HEMATOCRIT 43.2 % (35.0-45.0); HEMOGLOBIN 14.7 g/dl (12.0-16.0); LYMPHOCYTES # (AUTO) 0.5 X10'3 (1.1-4.8); LYMPHOCYTES % (AUTO) 5.2 % (21-51); MEAN CORPUSCULAR HEMOGLOBIN 30.1 PG (27.0-31.0); MEAN CORPUSCULAR HGB CONC 33.9 g/dL (33.0-36.5); MEAN CORPUSCULAR VOLUME 88.7 FL (78-98); MEAN PLATELET VOLUME 9.8 FL (7.4-10.4); MONOCYTES # (AUTO) 0.6 X10'3 (0-0.9); MONOCYTES % (AUTO) 7.2 % (2-12); NEUTROPHILS # (AUTO) 7.5 X10'3 (1.8-7.7); NEUTROPHILS % (AUTO) 87.4 % (42-75); PLATELET COUNT 327 X10'3 (140-440); RED BLOOD COUNT 4.88 X10'6 (4.20-5.60); RED CELL DISTRIBUTION WIDTH 13.4 % (11.5-14.5); WHITE BLOOD COUNT 8.6 X10'3 (4.5-11.0)
[2021-10-06 06:59] LABS: D-DIMER 1.26 MG/L FEU (0-0.50)
[2021-10-06 07:13] LABS: ALANINE AMINOTRANSFERASE 18 U/L (12-78); ALBUMIN 2.7 G/DL (3.4-5.0); ALBUMIN/GLOBULIN RATIO 0.6 (1.1-1.5); ALKALINE PHOSPHATASE 111 IU/L (46-116); ANION GAP 14 (8-16); ASPARTATE AMINO TRANSFERASE 61 U/L (10-37); BILIRUBIN,TOTAL 0.5 MG/DL (0.1-1.0); BLOOD UREA NITROGEN 25 MG/DL (7-18); BUN/CREATININE RATIO 21.7 (6.6-38.0); C-REACTIVE PROTEIN 6.85 MG/DL (0.0-0.5); CALCIUM 9.1 MG/DL (8.5-10.1); CHLORIDE 105 MMOL/L (99-107); CREATININE 1.15 MG/DL (0.40-0.90); GLUCOSE 215 MG/DL (70-104); POTASSIUM 4.1 MMOL/L (3.5-5.1); SODIUM 142 MMOL/L (135-145); TOTAL PROTEIN 7.1 G/DL (6.4-8.2); eGFR 47 ML/MIN
[2021-10-06] MEDS: atorvastatin 10mg tablet PO SCH (08:00)
[2021-10-06] MEDS: losartan 25mg tablet PO SCH (08:00)
[2021-10-06] MEDS: dexamethasone 6 MG/D5W 100ml IV.soln (total 101.5ml) IV SCH ×4 (08:29→20:34)
[2021-10-06] MEDS: nitroGLYCERIN 0.2mg/hour patch TD SCH (08:30)
[2021-10-06] MEDS: BARICITINIB 2 MG TABLET PO SCH (08:31)
[2021-10-06] MEDS: diltiazem CD 180mg cap (once-daily) PO SCH (08:31)
[2021-10-06] MEDS: cholecalciferol (vitamin D3) 1,000 unit (25mcg) tablet PO SCH (08:36)
[2021-10-06] MEDS: FLUoxetine 20mg capsule PO SCH (08:37)
[2021-10-06] MEDS: buPROPion SR 150mg tablet PO SCH (08:37)
[2021-10-06] MEDS: furosemide 20 MG/2 ML vial IV SCH ×2 (08:37→20:34)
[2021-10-06] MEDS: docusate sod 100mg capsule PO SCH ×2 (08:38→20:34)
[2021-10-06] MEDS: pantoprazole 40mg Tablet.DR PO SCH (08:38)
[2021-10-06] MEDS: aspirin 81mg, enteric-coated 1 TAB TABLET.DR PO SCH (08:38)
[2021-10-06] MEDS: nystatin 15 GM powder TP SCH ×3 (08:39→20:35)
[2021-10-06] MEDS: enoxaparin 40mg/0.4ml syringe SUBCUT SCH ×2 (08:40→20:35)
[2021-10-06] MEDS: insulin Lispro (HumaLOG) vial - multi-dose SQ SCH ×3 (08:58→21:19)
[2021-10-06 10:00] VITALS: BP 108/60
[2021-10-06 18:00] VITALS: BP 148/71
[2021-10-06] MEDS: risperiDONE 0.5mg tablet PO SCH (20:35)
[2021-10-06] MEDS: normal saline 1000ml 1,000 ML IV SCH (20:56)
[2021-10-06] MEDS: insulin glargine (Lantus) pen - multi-dose SQ SCH (21:22)
[2021-10-06] MEDS: mag hydrox/Alum hydrox/simeth 30ml oral suspension PO PRN (21:29)
[2021-10-06 22:00] VITALS: BP 146/66
[2021-10-07 02:00] VITALS: BP 143/54
[2021-10-07] MEDS: guaiFENesin 200 MG/10 ML oral syrup UD cup PO PRN ×4 (03:58→22:05)
[2021-10-07 06:00] VITALS: BP 132/57
[2021-10-07] MEDS: diltiazem CD 180mg cap (once-daily) PO SCH (08:02)
[2021-10-07] MEDS: cholecalciferol (vitamin D3) 1,000 unit (25mcg) tablet PO SCH (08:02)
[2021-10-07] MEDS: atorvastatin 10mg tablet PO SCH (08:02)
[2021-10-07] MEDS: FLUoxetine 20mg capsule PO SCH (08:02)
[2021-10-07] MEDS: buPROPion SR 150mg tablet PO SCH (08:02)
[2021-10-07] MEDS: aspirin 81mg, enteric-coated 1 TAB TABLET.DR PO SCH (08:03)
[2021-10-07] MEDS: pantoprazole 40mg Tablet.DR PO SCH (08:03)
[2021-10-07] MEDS: docusate sod 100mg capsule PO SCH ×2 (08:03→19:34)
[2021-10-07] MEDS: enoxaparin 40mg/0.4ml syringe SUBCUT SCH ×2 (08:03→19:39)
[2021-10-07] MEDS: losartan 25mg tablet PO SCH (08:03)
[2021-10-07] MEDS: furosemide 20 MG/2 ML vial IV SCH ×2 (08:04→19:39)
[2021-10-07] MEDS: nystatin 15 GM powder TP SCH ×3 (08:04→21:26)
[2021-10-07] MEDS: nitroGLYCERIN 0.2mg/hour patch TD SCH ×3 (08:04→23:44)
[2021-10-07] MEDS: dexamethasone 6 MG/D5W 100ml IV.soln (total 101.5ml) IV SCH ×4 (08:06→19:34)
[2021-10-07] MEDS: BARICITINIB 2 MG TABLET PO SCH (08:06)
[2021-10-07 08:11] LABS: BASOPHILS % (AUTO) 0.1 % (0-1); EOSINOPHILS % (AUTO) 0 % (0-6); HEMATOCRIT 41.8 % (35.0-45.0); HEMOGLOBIN 14.2 g/dl (12.0-16.0); LYMPHOCYTES # (AUTO) 0.3 X10'3 (1.1-4.8); LYMPHOCYTES % (AUTO) 3.1 % (21-51); MEAN CORPUSCULAR VOLUME 88.2 FL (78-98); MEAN PLATELET VOLUME 9.3 FL (7.4-10.4); MONOCYTES # (AUTO) 0.8 X10'3 (0-0.9); MONOCYTES % (AUTO) 7.5 % (2-12); NEUTROPHILS # (AUTO) 8.9 X10'3 (1.8-7.7); NEUTROPHILS % (AUTO) 89.3 % (42-75); PLATELET COUNT 353 X10'3 (140-440); RED BLOOD COUNT 4.74 X10'6 (4.20-5.60); RED CELL DISTRIBUTION WIDTH 13.2 % (11.5-14.5)
[2021-10-07 08:28] LABS: ALANINE AMINOTRANSFERASE 19 U/L (12-78); ALBUMIN 2.6 G/DL (3.4-5.0); ALBUMIN/GLOBULIN RATIO 0.6 (1.1-1.5); ALKALINE PHOSPHATASE 146 IU/L (46-116); ANION GAP 10 (8-16); ASPARTATE AMINO TRANSFERASE 81 U/L (10-37); BILIRUBIN,TOTAL 0.6 MG/DL (0.1-1.0); BLOOD UREA NITROGEN 24 MG/DL (7-18); BUN/CREATININE RATIO 26.7 (6.6-38.0); C-REACTIVE PROTEIN 3.46 MG/DL (0.0-0.5); CALCIUM 8.6 MG/DL (8.5-10.1); CHLORIDE 106 MMOL/L (99-107); GLUCOSE 194 MG/DL (70-104); POTASSIUM 4.1 MMOL/L (3.5-5.1); SODIUM 144 MMOL/L (135-145); TOTAL CARBON DIOXIDE 27.8 MMOL/L (24-32); TOTAL PROTEIN 6.8 G/DL (6.4-8.2); eGFR 62 ML/MIN
[2021-10-07 08:54] LABS: D-DIMER 1.69 MG/L FEU (0-0.50)
[2021-10-07 10:00] VITALS: BP 143/68
[2021-10-07] MEDS: HYDROmorphone inj. 0.5 MG/0.5 ML DISP.SYRIN IV PRN ×3 (10:28→19:31)
[2021-10-07] MEDS: insulin Lispro (HumaLOG) vial - multi-dose SQ SCH ×4 (10:28→21:19)
[2021-10-07] MEDS: morphine 2 MG/ML inj. syringe IV PRN (12:52)
[2021-10-07 14:00] VITALS: BP 132/53
[2021-10-07 18:00] VITALS: BP 122/56
[2021-10-07] MEDS: ondansetron/PF 4mg/2ml inj IV PRN (19:26)
[2021-10-07] MEDS: risperiDONE 0.5mg tablet PO SCH (21:00)
[2021-10-07] MEDS: insulin glargine (Lantus) pen - multi-dose SQ SCH (21:21)
[2021-10-07 22:00] VITALS: BP 139/62
--- NOTE | 2021-10-07 23:45 | NUR ---
Pt in bed AAOx4 not in any apparent distress, receiving oxygen via NRM at 15 l. Plan of care verbalized to pt. Pt requested pain medication to be administered with evening medications. call light,bedside table placed within reach. pt instructed to call for assistance as needed. Continue to monitor pt, safety measure in place.
[2021-10-08 02:00] VITALS: BP 145/74
[2021-10-08 05:00] VITALS: BP 134/60
--- NOTE | 2021-10-08 05:26 | NUR ---
Pt Slept most of the night, voiced no complaints, Remains in stable condition.
[2021-10-08] MEDS: losartan 25mg tablet PO SCH (08:00)
[2021-10-08] MEDS: nystatin 15 GM powder TP SCH ×3 (08:00→21:00)
[2021-10-08] MEDS: atorvastatin 10mg tablet PO SCH (08:00)
[2021-10-08 08:15] LABS: BASOPHILS % (AUTO) 0.5 % (0-1); EOSINOPHILS % (AUTO) 0 % (0-6); HEMATOCRIT 40.4 % (35.0-45.0); HEMOGLOBIN 13.7 g/dl (12.0-16.0); LYMPHOCYTES # (AUTO) 0.3 X10'3 (1.1-4.8); LYMPHOCYTES % (AUTO) 3.4 % (21-51); MEAN CORPUSCULAR HEMOGLOBIN 30.1 PG (27.0-31.0); MEAN CORPUSCULAR HGB CONC 33.9 g/dL (33.0-36.5); MEAN CORPUSCULAR VOLUME 88.9 FL (78-98); MEAN PLATELET VOLUME 9.6 FL (7.4-10.4); MONOCYTES # (AUTO) 0.7 X10'3 (0-0.9); MONOCYTES % (AUTO) 8.7 % (2-12); NEUTROPHILS # (AUTO) 7.4 X10'3 (1.8-7.7); NEUTROPHILS % (AUTO) 87.4 % (42-75); PLATELET COUNT 360 X10'3 (140-440); RED BLOOD COUNT 4.55 X10'6 (4.20-5.60); RED CELL DISTRIBUTION WIDTH 13.6 % (11.5-14.5); WHITE BLOOD COUNT 8.4 X10'3 (4.5-11.0)
[2021-10-08 08:38] LABS: ALANINE AMINOTRANSFERASE 24 U/L (12-78); ALBUMIN 2.6 G/DL (3.4-5.0); ALBUMIN/GLOBULIN RATIO 0.6 (1.1-1.5); ALKALINE PHOSPHATASE 156 IU/L (46-116); ANION GAP 7 (8-16); ASPARTATE AMINO TRANSFERASE 77 U/L (10-37); BILIRUBIN,TOTAL 0.7 MG/DL (0.1-1.0); BLOOD UREA NITROGEN 38 MG/DL (7-18); BUN/CREATININE RATIO 36.2 (6.6-38.0); CALCIUM 8.7 MG/DL (8.5-10.1); CHLORIDE 103 MMOL/L (99-107); CREATININE 1.05 MG/DL (0.40-0.90); GLUCOSE 177 MG/DL (70-104); POTASSIUM 4.4 MMOL/L (3.5-5.1); SODIUM 140 MMOL/L (135-145); TOTAL CARBON DIOXIDE 29.6 MMOL/L (24-32); TOTAL PROTEIN 6.8 G/DL (6.4-8.2); eGFR 52 ML/MIN
[2021-10-08] MEDS: insulin Lispro (HumaLOG) vial - multi-dose SQ SCH ×2 (08:43→13:15)
[2021-10-08] MEDS: furosemide 20 MG/2 ML vial IV SCH ×2 (08:48→20:00)
[2021-10-08] MEDS: dexamethasone 6 MG/D5W 100ml IV.soln (total 101.5ml) IV SCH ×4 (08:52→20:00)
[2021-10-08] MEDS: docusate sod 100mg capsule PO SCH ×2 (09:01→20:00)
[2021-10-08] MEDS: BARICITINIB 2 MG TABLET PO SCH (09:01)
[2021-10-08] MEDS: aspirin 81mg, enteric-coated 1 TAB TABLET.DR PO SCH (09:02)
[2021-10-08] MEDS: cholecalciferol (vitamin D3) 1,000 unit (25mcg) tablet PO SCH (09:02)
[2021-10-08] MEDS: pantoprazole 40mg Tablet.DR PO SCH (09:02)
[2021-10-08] MEDS: FLUoxetine 20mg capsule PO SCH (09:03)
[2021-10-08] MEDS: diltiazem CD 180mg cap (once-daily) PO SCH (09:03)
[2021-10-08] MEDS: buPROPion SR 150mg tablet PO SCH (09:04)
[2021-10-08] MEDS: enoxaparin 60mg/0.6ml syringe SUBCUT SCH ×2 (09:05→20:00)
[2021-10-08] MEDS: guaiFENesin 200 MG/10 ML oral syrup UD cup PO PRN (09:18)
[2021-10-08] MEDS: mag hydrox/Alum hydrox/simeth 30ml oral suspension PO PRN (09:18)
[2021-10-08] MEDS: morphine 2 MG/ML inj. syringe IV PRN (09:19)
[2021-10-08 10:00] VITALS: BP 142/54
[2021-10-08 11:08] LABS: D-DIMER 1.29 MG/L FEU (0-0.50)
[2021-10-08] MEDS ORDERED: acetaminophen 325mg tablet PO PRN (11:55)
[2021-10-08] MEDS ORDERED: LORazepam 2 mg/ml vial IV PRN (11:55)
--- NOTE | 2021-10-08 11:55 | NUR ---
Talked to Dr Dempsey about patients medication concerns for blood pressure med (losartan) and Lipitor (pt takes simvastatin at home) pt feels that she is allergic to these meds as well as many other meds. Dr Dempsey said to DC these, along with nitro patch. Pt asking for weekly dose of estridial (sp?) patch. Dr Dempsey says to keep holding it while she is here. I will remove current patch. Dilaudid dc'd. Morphine ok. Ativan PRN per Dr Dempsey. Pt says she takes acetaminophen for pain at home even though it is listed on allergy, this was clairified it is only a problem in combination with norco/codeine as per patient. So we have also added this on for pain if needed.
--- NOTE | 2021-10-08 12:05 | NUR ---
Initial: Pt admit for acute hypoxemic respiratory failure secondary to COVID PNA. Currently on a CHO controlled diet and overall with 25-50% PO intake of meals meeting roughly 28-56% estimated energy needs and 32-65% estimated protein needs using IBW +10% to calculate nutrient needs as current documented wt isn't scaled. Recommend Ensure Enlive TIDWM to assist with meeting estimated nutrient needs, to be sent with physician approval in EMR. LBM 10/06. Will continue to follow closely and monitor need for further nutrition intervention. Recommendations: 1) Continue CHO controlled diet; consider liberalizing to regular diet IF PO intake does not improve 2) Ensure Enlive TIDWM, pending physician approval in EMR 3) Routine bowel care 4) Scaled weight this admit; weekly scaled weights thereafter Addendum: 10/08/21 at [address] Amended: Links added.
[2021-10-08 14:45] VITALS: BP 182/69
--- NOTE | 2021-10-08 14:50 | NUR ---
PT refuses all blood pressure medications due to "being allergic to all blood pressure medications" according to patient. Recent BP is up into 180's but patient is proning. Will recheck when she is back on her back or side.
[2021-10-08 18:00] VITALS: BP 142/48
--- NOTE | 2021-10-08 18:20 | NUR ---
Patient in room ORTHO 4024. I have received report from Homa BRANDT and had the opportunity to ask questions and assume patient care. Addendum: 10/08/21 at 1857 by Lisa Easton RN Amended: Links added.
--- NOTE | 2021-10-08 18:52 | NUR ---
Report given to Lisa BRANDT. Pt sitting up in bed. Oxygen saturation 88%. I paged RT due to prior to dinner patient was at 86%, Lisa will follow up. Patient finishing eating dinner. No current distress.
[2021-10-08] MEDS ORDERED: enoxaparin 40mg/0.4ml syringe SUBCUT SCH (20:00)
[2021-10-08] MEDS: normal saline 1000ml 1,000 ML IV SCH (20:45)
[2021-10-08] MEDS: risperiDONE 0.5mg tablet PO SCH (21:00)
--- NOTE | 2021-10-08 21:00 | NUR ---
Pt. A & O at this time with C/o short of breath with activities such as reposition. Pt. on 15 L nonrebreather mask. Rt working with pt. HOB in high fowlers, bed in low position, and the call light within reach. Addendum: 10/09/21 at 0254 by Lisa Easton RN Amended: Links added.
[2021-10-08 22:00] VITALS: BP 144/49
[2021-10-08] MEDS: insulin glargine (Lantus) pen - multi-dose SQ SCH (22:45)
[2021-10-09 02:00] VITALS: BP 145/64
[2021-10-09 06:00] VITALS: BP 143/56
--- NOTE | 2021-10-09 06:40 | NUR ---
Problems reprioritized. Patient report given, questions answered & plan of care reviewed with Savanah BRANDT. Addendum: 10/09/21 at 0715 by Lisa Easton RN Amended: Links added.
--- NOTE | 2021-10-09 07:03 | NUR ---
Patient in room ORTHO 4024A. I have received report from RIKKI Gonzalez and had the opportunity to ask questions and assume patient care.
[2021-10-09 08:14] LABS: D-DIMER 1.83 MG/L FEU (0-0.50)
[2021-10-09 08:23] LABS: BASOPHILS % (AUTO) 0.1 % (0-1); EOSINOPHILS % (AUTO) 0 % (0-6); HEMATOCRIT 41.6 % (35.0-45.0); HEMOGLOBIN 14.1 g/dl (12.0-16.0); LYMPHOCYTES # (AUTO) 0.2 X10'3 (1.1-4.8); LYMPHOCYTES % (AUTO) 2.6 % (21-51); MEAN CORPUSCULAR HEMOGLOBIN 30.1 PG (27.0-31.0); MEAN CORPUSCULAR HGB CONC 33.8 g/dL (33.0-36.5); MEAN PLATELET VOLUME 9.3 FL (7.4-10.4); MONOCYTES # (AUTO) 0.7 X10'3 (0-0.9); MONOCYTES % (AUTO) 7.7 % (2-12); NEUTROPHILS # (AUTO) 7.5 X10'3 (1.8-7.7); NEUTROPHILS % (AUTO) 89.6 % (42-75); PLATELET COUNT 363 X10'3 (140-440); RED BLOOD COUNT 4.67 X10'6 (4.20-5.60); RED CELL DISTRIBUTION WIDTH 13.1 % (11.5-14.5); WHITE BLOOD COUNT 8.4 X10'3 (4.5-11.0)
[2021-10-09 08:35] LABS: ALANINE AMINOTRANSFERASE 26 U/L (12-78); ALBUMIN 2.5 G/DL (3.4-5.0); ALBUMIN/GLOBULIN RATIO 0.6 (1.1-1.5); ALKALINE PHOSPHATASE 164 IU/L (46-116); ANION GAP 7 (8-16); ASPARTATE AMINO TRANSFERASE 73 U/L (10-37); BILIRUBIN,TOTAL 0.8 MG/DL (0.1-1.0); BLOOD UREA NITROGEN 29 MG/DL (7-18); BUN/CREATININE RATIO 31.2 (6.6-38.0); CALCIUM 8.5 MG/DL (8.5-10.1); CHLORIDE 104 MMOL/L (99-107); CREATININE 0.93 MG/DL (0.40-0.90); GLUCOSE 211 MG/DL (70-104); POTASSIUM 4.6 MMOL/L (3.5-5.1); SODIUM 142 MMOL/L (135-145); TOTAL PROTEIN 6.8 G/DL (6.4-8.2); eGFR 60 ML/MIN
[2021-10-09] MEDS: furosemide 20 MG/2 ML vial IV SCH ×2 (09:41→21:54)
[2021-10-09] MEDS: dexamethasone 6 MG/D5W 100ml IV.soln (total 101.5ml) IV SCH ×4 (09:41→21:59)
[2021-10-09] MEDS: nystatin 15 GM powder TP SCH ×3 (09:42→21:00)
[2021-10-09] MEDS: cholecalciferol (vitamin D3) 1,000 unit (25mcg) tablet PO SCH (09:42)
[2021-10-09] MEDS: pantoprazole 40mg Tablet.DR PO SCH (09:42)
[2021-10-09] MEDS: diltiazem CD 180mg cap (once-daily) PO SCH (09:42)
[2021-10-09] MEDS: enoxaparin 60mg/0.6ml syringe SUBCUT SCH ×2 (09:42→21:54)
[2021-10-09] MEDS: aspirin 81mg, enteric-coated 1 TAB TABLET.DR PO SCH (09:42)
[2021-10-09] MEDS: docusate sod 100mg capsule PO SCH ×2 (09:42→21:54)
[2021-10-09] MEDS: FLUoxetine 20mg capsule PO SCH (09:42)
[2021-10-09] MEDS: buPROPion SR 150mg tablet PO SCH (09:42)
[2021-10-09] MEDS: BARICITINIB 2 MG TABLET PO SCH (09:42)
[2021-10-09] MEDS: insulin Lispro (HumaLOG) vial - multi-dose SQ SCH ×3 (09:46→19:25)
[2021-10-09] MEDS: mag hydrox/Alum hydrox/simeth 30ml oral suspension PO PRN (09:59)
[2021-10-09 10:00] VITALS: BP 130/53
[2021-10-09] MEDS: guaiFENesin 200 MG/10 ML oral syrup UD cup PO PRN ×2 (10:00→22:09)
[2021-10-09] MEDS: morphine 2 MG/ML inj. syringe IV PRN ×2 (10:02→22:11)
--- NOTE | 2021-10-09 13:20 | NUR ---
received message regarding pt from pt's daughter Chrissy garcia am. Chrissy states pt cannot come home if she cannot walk or go up steps. there are 8-9 steps going up to the front door at home, and 2-3 going up to the back door. physical therapy will need to work on stairs with pt or pt may need to go to rehab. Addendum: 10/09/21 at 1712 by Savanah Nguyen RN charted note on wrong pt
[2021-10-09 14:00] VITALS: BP 135/57
--- NOTE | 2021-10-09 17:12 | NUR ---
Page Sent PAGER ID: [phone] MESSAGE: Savanah [phone] Re:Claritza Saul [id number] pt's accucheck was 69. will give glucose and recheck in 15 min
[2021-10-09 18:00] VITALS: BP 144/48
--- NOTE | 2021-10-09 18:47 | NUR ---
Problems reprioritized. Patient report given, questions answered & plan of care reviewed with RIKKI Brown.
[2021-10-09] MEDS: insulin glargine (Lantus) pen - multi-dose SQ SCH (21:50)
[2021-10-09] MEDS: risperiDONE 0.5mg tablet PO SCH (21:54)
[2021-10-09 22:00] VITALS: BP 147/46
[2021-10-10 02:00] VITALS: BP 162/59
--- NOTE | 2021-10-10 02:00 | NUR ---
Found with 20g IV pulled out and blood on sheets and hands. Mariah senior mechanical project manager and I got pt cleaned up and linens changed. New IV started.
[2021-10-10 06:00] VITALS: BP 151/63
[2021-10-10 07:32] LABS: D-DIMER 1.94 MG/L FEU (0-0.50)
[2021-10-10] MEDS: BARICITINIB 2 MG TABLET PO SCH (08:00)
[2021-10-10] MEDS: diltiazem CD 180mg cap (once-daily) PO SCH (08:26)
[2021-10-10] MEDS: buPROPion SR 150mg tablet PO SCH (08:26)
[2021-10-10] MEDS: dexamethasone 6 MG/D5W 100ml IV.soln (total 101.5ml) IV SCH ×4 (08:26→19:37)
[2021-10-10] MEDS: furosemide 20 MG/2 ML vial IV SCH ×2 (08:27→19:37)
[2021-10-10] MEDS: FLUoxetine 20mg capsule PO SCH (08:27)
[2021-10-10] MEDS: enoxaparin 60mg/0.6ml syringe SUBCUT SCH ×2 (08:27→19:38)
[2021-10-10] MEDS: morphine 2 MG/ML inj. syringe IV PRN ×2 (08:27→20:12)
[2021-10-10] MEDS: aspirin 81mg, enteric-coated 1 TAB TABLET.DR PO SCH (08:27)
[2021-10-10] MEDS: cholecalciferol (vitamin D3) 1,000 unit (25mcg) tablet PO SCH (08:27)
[2021-10-10] MEDS: docusate sod 100mg capsule PO SCH ×2 (08:27→20:00)
[2021-10-10] MEDS: pantoprazole 40mg Tablet.DR PO SCH (08:27)
[2021-10-10] MEDS: nystatin 15 GM powder TP SCH ×3 (08:28→21:00)
[2021-10-10 10:00] VITALS: BP 151/68
[2021-10-10] MEDS: insulin Lispro (HumaLOG) vial - multi-dose SQ SCH ×2 (10:07→18:50)
[2021-10-10] MEDS ORDERED: FLU VACC QS2021-22(6MOS UP)/PF 60 MCG/0.5 ML SYRINGE IM ONE (10:45)
[2021-10-10 14:00] VITALS: BP 142/62
[2021-10-10 19:30] VITALS: BP 153/68
[2021-10-10] MEDS: zinc sulfate 220mg capsule PO SCH (19:37)
[2021-10-10] MEDS: guaiFENesin 200 MG/10 ML oral syrup UD cup PO PRN (20:00)
--- NOTE | 2021-10-10 20:12 | NUR ---
back was at a 7 at 2011 when morphine given.
[2021-10-10] MEDS: insulin glargine (Lantus) pen - multi-dose SQ SCH (21:20)
[2021-10-10] MEDS: risperiDONE 0.5mg tablet PO SCH (21:21)
[2021-10-11 01:57] VITALS: BP 105/48
[2021-10-11] MEDS: morphine 2 MG/ML inj. syringe IV PRN ×4 (02:17→21:27)
[2021-10-11] MEDS: normal saline 1000ml 1,000 ML IV SCH ×2 (02:33→08:41)
--- NOTE | 2021-10-11 05:58 | NUR ---
Report to Savanah BRANDT.
[2021-10-11 06:00] VITALS: BP 121/55
--- NOTE | 2021-10-11 06:26 | NUR ---
Patient in room ORTHO 4024A. I have received report from RIKKI Ames and had the opportunity to ask questions and assume patient care.
[2021-10-11] MEDS: enoxaparin 60mg/0.6ml syringe SUBCUT SCH ×2 (08:31→19:30)
[2021-10-11] MEDS: dexamethasone 6 MG/D5W 100ml IV.soln (total 101.5ml) IV SCH ×2 (08:31)
[2021-10-11] MEDS: furosemide 20 MG/2 ML vial IV SCH ×2 (08:31→19:29)
[2021-10-11] MEDS: aspirin 81mg, enteric-coated 1 TAB TABLET.DR PO SCH (08:32)
[2021-10-11] MEDS: pantoprazole 40mg Tablet.DR PO SCH (08:32)
[2021-10-11] MEDS: diltiazem CD 180mg cap (once-daily) PO SCH (08:32)
[2021-10-11] MEDS: docusate sod 100mg capsule PO SCH ×2 (08:32→19:29)
[2021-10-11] MEDS: zinc sulfate 220mg capsule PO SCH ×3 (08:32→21:25)
[2021-10-11] MEDS: FLUoxetine 20mg capsule PO SCH (08:32)
[2021-10-11] MEDS: buPROPion SR 150mg tablet PO SCH (08:32)
[2021-10-11] MEDS: cholecalciferol (vitamin D3) 1,000 unit (25mcg) tablet PO SCH (08:32)
[2021-10-11] MEDS: BARICITINIB 2 MG TABLET PO SCH (08:32)
[2021-10-11] MEDS: nystatin 15 GM powder TP SCH ×3 (08:34→21:18)
[2021-10-11] MEDS: guaiFENesin 200 MG/10 ML oral syrup UD cup PO PRN (08:42)
[2021-10-11] MEDS: insulin Lispro (HumaLOG) vial - multi-dose SQ SCH ×4 (09:52→21:24)
[2021-10-11 10:00] VITALS: BP 106/49
--- NOTE | 2021-10-11 12:26 | NUR ---
paged respiratory therapy regarding pt's O2 sats in low 80s
[2021-10-11 14:00] VITALS: BP 141/57
--- NOTE | 2021-10-11 14:08 | NUR ---
Reassessment: Pt continues on CCHO diet w/ mostly ~50% intake of meals not meeting needs. ONS remains unverified in EMR, d/w RN that pt can still benefit from ONS at this time. Currently on 50L oxygen via HFNC. LBM 10/10 w/ routine colace. Will continue to monitor and make recommendations as appropriate. Recommendations: 1) Continue CHO controlled diet; consider liberalizing to regular diet IF PO intake does not improve 2) Ensure Enlive TIDWM, pending physician approval in EMR 3) Routine bowel care 4) Scaled weight this admit; weekly scaled weights thereafter Addendum: 10/11/21 at [address] Amended: Links added.
[2021-10-11] MEDS: methylPREDNISolone sod succ 125mg/2ml vial IV SCH (16:31)
[2021-10-11] MEDS: benzonatate 100mg capsule PO PRN (16:31)
[2021-10-11 18:00] VITALS: BP 135/57
--- NOTE | 2021-10-11 18:31 | NUR ---
Problems reprioritized. Patient report given, questions answered & plan of care reviewed with RIKKI Ron.
--- NOTE | 2021-10-11 18:50 | NUR ---
Patient in room ORTHO 4024. I have received report from Savanah BRANDT and had the opportunity to ask questions and assume patient care.
[2021-10-11] MEDS: insulin glargine (Lantus) pen - multi-dose SQ SCH (21:25)
[2021-10-11] MEDS: risperiDONE 0.5mg tablet PO SCH (21:26)
[2021-10-11 22:07] VITALS: BP 130/55
[2021-10-12] VITALS (7 sets, daily range): BP systolic 116–148; BP diastolic 49–73
--- NOTE | 2021-10-12 06:15 | NUR ---
Problems reprioritized. Patient report given, questions answered & plan of care reviewed with Mary BRANDT.
[2021-10-12 07:58] LABS: BASOPHILS % (AUTO) 0.2 % (0-1); EOSINOPHILS % (AUTO) 0 % (0-6); HEMATOCRIT 42.8 % (35.0-45.0); HEMOGLOBIN 14.3 g/dl (12.0-16.0); LYMPHOCYTES # (AUTO) 0.2 X10'3 (1.1-4.8); LYMPHOCYTES % (AUTO) 2.7 % (21-51); MEAN CORPUSCULAR HEMOGLOBIN 29.7 PG (27.0-31.0); MEAN CORPUSCULAR HGB CONC 33.5 g/dL (33.0-36.5); MEAN CORPUSCULAR VOLUME 88.7 FL (78-98); MEAN PLATELET VOLUME 8.9 FL (7.4-10.4); MONOCYTES # (AUTO) 0.7 X10'3 (0-0.9); MONOCYTES % (AUTO) 10.2 % (2-12); NEUTROPHILS # (AUTO) 5.6 X10'3 (1.8-7.7); NEUTROPHILS % (AUTO) 86.9 % (42-75); PLATELET COUNT 447 X10'3 (140-440); RED BLOOD COUNT 4.82 X10'6 (4.20-5.60); RED CELL DISTRIBUTION WIDTH 12.9 % (11.5-14.5); WHITE BLOOD COUNT 6.4 X10'3 (4.5-11.0)
[2021-10-12] MEDS: nystatin 15 GM powder TP SCH ×3 (08:00→19:58)
[2021-10-12 08:36] LABS: ALBUMIN 2.4 G/DL (3.4-5.0); ANION GAP 8 (8-16); BLOOD UREA NITROGEN 30 MG/DL (7-18); BUN/CREATININE RATIO 31.6 (6.6-38.0); C-REACTIVE PROTEIN 0.92 MG/DL (0.0-0.5); CALCIUM 8.5 MG/DL (8.5-10.1); CHLORIDE 102 MMOL/L (99-107); CREATININE 0.95 MG/DL (0.40-0.90); GLUCOSE 180 MG/DL (70-104); POTASSIUM 4.6 MMOL/L (3.5-5.1); SODIUM 139 MMOL/L (135-145); TOTAL CARBON DIOXIDE 29.5 MMOL/L (24-32); eGFR 58 ML/MIN
[2021-10-12 09:04] LABS: D-DIMER 1.02 MG/L FEU (0-0.50)
[2021-10-12] MEDS ORDERED: salt irrigation nasal spray 45 ML SPRAY NS PRN (09:45)
[2021-10-12] MEDS: benzonatate 100mg capsule PO PRN (10:38)
[2021-10-12] MEDS: cholecalciferol (vitamin D3) 1,000 unit (25mcg) tablet PO SCH (10:39)
[2021-10-12] MEDS: BARICITINIB 2 MG TABLET PO SCH (10:39)
[2021-10-12] MEDS: docusate sod 100mg capsule PO SCH ×2 (10:39→19:55)
[2021-10-12] MEDS: buPROPion SR 150mg tablet PO SCH (10:39)
[2021-10-12] MEDS: aspirin 81mg, enteric-coated 1 TAB TABLET.DR PO SCH (10:39)
[2021-10-12] MEDS: FLUoxetine 20mg capsule PO SCH (10:39)
[2021-10-12] MEDS: zinc sulfate 220mg capsule PO SCH ×3 (10:40→20:00)
[2021-10-12] MEDS: pantoprazole 40mg Tablet.DR PO SCH (10:40)
[2021-10-12] MEDS: methylPREDNISolone sod succ 125mg/2ml vial IV SCH ×2 (10:40→18:01)
[2021-10-12] MEDS: diltiazem CD 180mg cap (once-daily) PO SCH (10:40)
[2021-10-12] MEDS: enoxaparin 60mg/0.6ml syringe SUBCUT SCH ×2 (10:40→19:55)
[2021-10-12] MEDS: furosemide 20 MG/2 ML vial IV SCH ×2 (10:41→19:55)
[2021-10-12] MEDS: ondansetron/PF 4mg/2ml inj IV PRN (11:16)
[2021-10-12] MEDS: insulin Lispro (HumaLOG) vial - multi-dose SQ SCH ×2 (14:43→18:54)
--- NOTE | 2021-10-12 18:39 | NUR ---
Patient in room ORTHO 4024. I have received report from Mary BRANDT and had the opportunity to ask questions and assume patient care.
[2021-10-12] MEDS: risperiDONE 0.5mg tablet PO SCH (20:00)
[2021-10-12] MEDS: insulin glargine (Lantus) pen - multi-dose SQ SCH (20:59)
--- NOTE | 2021-10-12 22:09 | NUR ---
I had paged RT about setting patient up on her own home CPAP machine ,that her daughter had brought from home per MD request. RT said that there was no way to put the oxygen through her home machine since she requires too much oxygen for the home machine to handle. This was from Arturo SINGH.
[2021-10-13 02:04] VITALS: BP 128/44
[2021-10-13] MEDS: normal saline 1000ml 1,000 ML IV SCH (04:51)
[2021-10-13 06:00] VITALS: BP 128/45
--- NOTE | 2021-10-13 06:31 | NUR ---
Problems reprioritized. Patient report given, questions answered & plan of care reviewed with Jenna BRANDT.
--- NOTE | 2021-10-13 06:40 | NUR ---
Patient in room ORTHO 4024. I have received report from Rosamaria BRANDT and had the opportunity to ask questions and assume patient care.
[2021-10-13] MEDS: enoxaparin 60mg/0.6ml syringe SUBCUT SCH ×2 (07:31→20:12)
[2021-10-13] MEDS: furosemide 20 MG/2 ML vial IV SCH ×2 (07:31→20:12)
[2021-10-13] MEDS: methylPREDNISolone sod succ 125mg/2ml vial IV SCH ×2 (07:31→16:52)
[2021-10-13] MEDS: BARICITINIB 2 MG TABLET PO SCH (07:31)
[2021-10-13] MEDS: FLUoxetine 20mg capsule PO SCH (07:32)
[2021-10-13] MEDS: aspirin 81mg, enteric-coated 1 TAB TABLET.DR PO SCH (07:32)
[2021-10-13] MEDS: docusate sod 100mg capsule PO SCH ×2 (07:32→20:12)
[2021-10-13] MEDS: cholecalciferol (vitamin D3) 1,000 unit (25mcg) tablet PO SCH (07:32)
[2021-10-13] MEDS: zinc sulfate 220mg capsule PO SCH ×3 (07:32→20:12)
[2021-10-13] MEDS: diltiazem CD 180mg cap (once-daily) PO SCH (07:32)
[2021-10-13] MEDS: buPROPion SR 150mg tablet PO SCH (07:32)
[2021-10-13] MEDS: pantoprazole 40mg Tablet.DR PO SCH (07:32)
[2021-10-13] MEDS: nystatin 15 GM powder TP SCH ×3 (08:00→20:14)
[2021-10-13] MEDS: insulin Lispro (HumaLOG) vial - multi-dose SQ SCH ×3 (08:47→18:42)
[2021-10-13 09:47] LABS: D-DIMER 1.22 MG/L FEU (0-0.50)
[2021-10-13 09:50] LABS: EOSINOPHILS % (AUTO) 0 % (0-6); LYMPHOCYTES # (AUTO) 0.2 X10'3 (1.1-4.8); NEUTROPHILS # (AUTO) 8.5 X10'3 (1.8-7.7)
[2021-10-13 09:51] LABS: BASOPHILS % (AUTO) 0.1 % (0-1); HEMATOCRIT 44.9 % (35.0-45.0); HEMOGLOBIN 15.1 g/dl (12.0-16.0); LYMPHOCYTES % (AUTO) 2.1 % (21-51); MEAN CORPUSCULAR HEMOGLOBIN 29.9 PG (27.0-31.0); MEAN CORPUSCULAR HGB CONC 33.6 g/dL (33.0-36.5); MEAN PLATELET VOLUME 9.6 FL (7.4-10.4); MONOCYTES # (AUTO) 0.7 X10'3 (0-0.9); MONOCYTES % (AUTO) 7.8 % (2-12); PLATELET COUNT 546 X10'3 (140-440); RED BLOOD COUNT 5.05 X10'6 (4.20-5.60); WHITE BLOOD COUNT 9.5 X10'3 (4.5-11.0)
[2021-10-13 09:57] LABS: ALBUMIN 2.5 G/DL (3.4-5.0); ANION GAP 7 (8-16); BLOOD UREA NITROGEN 31 MG/DL (7-18); BUN/CREATININE RATIO 26.3 (6.6-38.0); C-REACTIVE PROTEIN 1.02 MG/DL (0.0-0.5); CALCIUM 8.2 MG/DL (8.5-10.1); CHLORIDE 100 MMOL/L (99-107); CREATININE 1.18 MG/DL (0.40-0.90); GLUCOSE 231 MG/DL (70-104); POTASSIUM 4.3 MMOL/L (3.5-5.1); SODIUM 137 MMOL/L (135-145); TOTAL CARBON DIOXIDE 29.8 MMOL/L (24-32); eGFR 46 ML/MIN
[2021-10-13 10:00] VITALS: BP 147/64
[2021-10-13 14:00] VITALS: BP 152/63
[2021-10-13] MEDS: benzonatate 100mg capsule PO PRN (16:52)
[2021-10-13 18:00] VITALS: BP 131/58
--- NOTE | 2021-10-13 18:23 | NUR ---
Patient in room ORTHO 4024. I have received report from Jenna BRANDT and had the opportunity to ask questions and assume patient care.
--- NOTE | 2021-10-13 18:27 | NUR ---
Problems reprioritized. Patient report given, questions answered & plan of care reviewed with Rosamaria BRANDT.
[2021-10-13] MEDS: guaiFENesin 200 MG/10 ML oral syrup UD cup PO PRN (20:10)
[2021-10-13] MEDS: risperiDONE 0.5mg tablet PO SCH (20:12)
[2021-10-13] MEDS: insulin glargine (Lantus) pen - multi-dose SQ SCH (20:56)
[2021-10-13 22:00] VITALS: BP 149/61
[2021-10-14 02:00] VITALS: BP 142/60
[2021-10-14 06:00] VITALS: BP 134/66
--- NOTE | 2021-10-14 06:18 | NUR ---
Problems reprioritized. Patient report given, questions answered & plan of care reviewed with Jane BRANDT.
--- NOTE | 2021-10-14 06:25 | NUR ---
received report from arun zazueta
[2021-10-14 06:27] LABS: BASOPHILS % (AUTO) 0.1 % (0-1); EOSINOPHILS % (AUTO) 0 % (0-6); HEMOGLOBIN 14.4 g/dl (12.0-16.0); LYMPHOCYTES # (AUTO) 0.2 X10'3 (1.1-4.8); LYMPHOCYTES % (AUTO) 2.5 % (21-51); MEAN CORPUSCULAR HEMOGLOBIN 29.7 PG (27.0-31.0); MEAN CORPUSCULAR HGB CONC 33.5 g/dL (33.0-36.5); MEAN CORPUSCULAR VOLUME 88.8 FL (78-98); MEAN PLATELET VOLUME 9.4 FL (7.4-10.4); MONOCYTES # (AUTO) 0.5 X10'3 (0-0.9); MONOCYTES % (AUTO) 6.8 % (2-12); NEUTROPHILS # (AUTO) 7.3 X10'3 (1.8-7.7); NEUTROPHILS % (AUTO) 90.6 % (42-75); PLATELET COUNT 474 X10'3 (140-440); RED BLOOD COUNT 4.84 X10'6 (4.20-5.60); RED CELL DISTRIBUTION WIDTH 12.8 % (11.5-14.5); WHITE BLOOD COUNT 8.1 X10'3 (4.5-11.0)
[2021-10-14 06:41] LABS: ALBUMIN 2.4 G/DL (3.4-5.0); ANION GAP 4 (8-16); BLOOD UREA NITROGEN 30 MG/DL (7-18); BUN/CREATININE RATIO 31.3 (6.6-38.0); C-REACTIVE PROTEIN 0.55 MG/DL (0.0-0.5); CALCIUM 8.1 MG/DL (8.5-10.1); CHLORIDE 103 MMOL/L (99-107); CREATININE 0.96 MG/DL (0.40-0.90); GLUCOSE 124 MG/DL (70-104); POTASSIUM 4.3 MMOL/L (3.5-5.1); SODIUM 137 MMOL/L (135-145); TOTAL CARBON DIOXIDE 30.2 MMOL/L (24-32); eGFR 58 ML/MIN
[2021-10-14 06:43] LABS: D-DIMER 0.92 MG/L FEU (0-0.50)
[2021-10-14] MEDS: FLUoxetine 20mg capsule PO SCH (07:07)
[2021-10-14] MEDS: cholecalciferol (vitamin D3) 1,000 unit (25mcg) tablet PO SCH (07:07)
[2021-10-14] MEDS: diltiazem CD 180mg cap (once-daily) PO SCH (07:07)
[2021-10-14] MEDS: BARICITINIB 2 MG TABLET PO SCH (07:07)
[2021-10-14] MEDS: aspirin 81mg, enteric-coated 1 TAB TABLET.DR PO SCH (07:07)
[2021-10-14] MEDS: buPROPion SR 150mg tablet PO SCH (07:07)
[2021-10-14] MEDS: docusate sod 100mg capsule PO SCH ×2 (07:07→20:00)
[2021-10-14] MEDS: zinc sulfate 220mg capsule PO SCH ×3 (07:07→20:02)
[2021-10-14] MEDS: pantoprazole 40mg Tablet.DR PO SCH (07:07)
[2021-10-14] MEDS: nystatin 15 GM powder TP SCH ×3 (07:08→20:20)
[2021-10-14] MEDS: enoxaparin 60mg/0.6ml syringe SUBCUT SCH ×2 (07:08→20:01)
[2021-10-14] MEDS: furosemide 20 MG/2 ML vial IV SCH ×2 (07:08→19:59)
[2021-10-14] MEDS: methylPREDNISolone sod succ 125mg/2ml vial IV SCH ×2 (07:09→16:52)
[2021-10-14] MEDS: insulin Lispro (HumaLOG) vial - multi-dose SQ SCH ×3 (08:38→19:30)
[2021-10-14 10:00] VITALS: BP 143/72
[2021-10-14] MEDS ORDERED: LIDOcaine 2% 10ml TOPICAL JELLY (Urojet) TP ONE (11:40)
[2021-10-14 14:00] VITALS: BP 123/80
[2021-10-14 18:00] VITALS: BP 143/64
--- NOTE | 2021-10-14 18:42 | NUR ---
GAVE REPORT TO RIKKI GILES
[2021-10-14] MEDS: risperiDONE 0.5mg tablet PO SCH (20:01)
[2021-10-14] MEDS: normal saline 1000ml 1,000 ML IV SCH (20:02)
[2021-10-14] MEDS: insulin glargine (Lantus) pen - multi-dose SQ SCH (21:40)
[2021-10-14 22:10] VITALS: BP 135/52
[2021-10-15] VITALS (7 sets, daily range): BP systolic 108–146; BP diastolic 49–75
[2021-10-15] MEDS: morphine 2 MG/ML inj. syringe IV PRN ×2 (01:20→20:06)
[2021-10-15] MEDS: benzonatate 100mg capsule PO PRN ×2 (03:20→17:45)
--- NOTE | 2021-10-15 06:35 | NUR ---
Patient in room ORTHO 4024. I have received report from RIKKI Fitzgerald and had the opportunity to ask questions and assume patient care.
[2021-10-15 09:16] LABS: D-DIMER 5.98 MG/L FEU (0-0.50)
[2021-10-15 09:31] LABS: HEMATOCRIT 46.4 % (35.0-45.0); HEMOGLOBIN 15.6 g/dl (12.0-16.0); MEAN CORPUSCULAR HEMOGLOBIN 30.3 PG (27.0-31.0); MEAN CORPUSCULAR HGB CONC 33.6 g/dL (33.0-36.5); MEAN CORPUSCULAR VOLUME 90.2 FL (78-98); MEAN PLATELET VOLUME 9.1 FL (7.4-10.4); PLATELET COUNT 500 X10'3 (140-440); RED BLOOD COUNT 5.15 X10'6 (4.20-5.60); RED CELL DISTRIBUTION WIDTH 12.9 % (11.5-14.5); WHITE BLOOD COUNT 12.2 X10'3 (4.5-11.0)
[2021-10-15 09:45] LABS: ALBUMIN 2.5 G/DL (3.4-5.0); ANION GAP 10 (8-16); BLOOD UREA NITROGEN 31 MG/DL (7-18); C-REACTIVE PROTEIN 0.21 MG/DL (0.0-0.5); CALCIUM 8.4 MG/DL (8.5-10.1); CHLORIDE 102 MMOL/L (99-107); CREATININE 0.94 MG/DL (0.40-0.90); GLUCOSE 96 MG/DL (70-104); POTASSIUM 4.4 MMOL/L (3.5-5.1); SODIUM 140 MMOL/L (135-145); TOTAL CARBON DIOXIDE 28.4 MMOL/L (24-32); eGFR 59 ML/MIN
[2021-10-15 10:03] LABS: TOTAL CELLS COUNTED 100
[2021-10-15 10:04] LABS: PLATELET ESTIMATE INCREASED
[2021-10-15] MEDS: insulin Lispro (HumaLOG) vial - multi-dose SQ SCH ×3 (10:32→18:44)
[2021-10-15] MEDS: enoxaparin 60mg/0.6ml syringe SUBCUT SCH ×2 (11:17→20:07)
[2021-10-15] MEDS: aspirin 81mg, enteric-coated 1 TAB TABLET.DR PO SCH (11:18)
[2021-10-15] MEDS: furosemide 20 MG/2 ML vial IV SCH ×2 (11:18→21:21)
[2021-10-15] MEDS: cholecalciferol (vitamin D3) 1,000 unit (25mcg) tablet PO SCH (11:18)
[2021-10-15] MEDS: buPROPion SR 150mg tablet PO SCH (11:18)
[2021-10-15] MEDS: FLUoxetine 20mg capsule PO SCH (11:18)
[2021-10-15] MEDS: zinc sulfate 220mg capsule PO SCH ×3 (11:18→20:05)
[2021-10-15] MEDS: pantoprazole 40mg Tablet.DR PO SCH (11:18)
[2021-10-15] MEDS: docusate sod 100mg capsule PO SCH ×2 (11:18→20:07)
[2021-10-15] MEDS: magnesium hydroxide 30ml (MOM) UD suspension PO PRN (11:18)
[2021-10-15] MEDS: diltiazem CD 180mg cap (once-daily) PO SCH (11:18)
[2021-10-15] MEDS: BARICITINIB 2 MG TABLET PO SCH (11:18)
[2021-10-15] MEDS: methylPREDNISolone sod succ 125mg/2ml vial IV SCH (11:19)
[2021-10-15] MEDS: nystatin 15 GM powder TP SCH ×2 (11:20→20:05)
--- NOTE | 2021-10-15 12:12 | NUR ---
Reassessment: Pt continues with mostly 25-50% PO intake of meals however noted PO intake did improve to 50-75% at lunch and dinner 10/14. Noted ONS still pending physician approval in EMR. TC to RN to discuss patient's nutrition status and RD recommendations. Per RN patient's PO intake continues to improve with 75-100% PO intake of breakfast this morning. Given recent improvement in PO intake will hold off on further nutrition intervention recommendations. ONS may not be warranted if PO intake continues to improve. LBM 10/12, receiving routine bowel care and received first dose of PRN MoM today per EMR. Will continue to follow closely and make recommendations as appropriate. Recommendations: 1) Continue CHO controlled diet; consider liberalizing to regular diet IF PO intake does not improve 2) Ensure Enlive TIDWM, pending physician approval in EMR 3) Routine bowel care 4) Scaled weight this admit; weekly scaled weights thereafter Addendum: 10/15/21 at [address] Amended: Links added.
[2021-10-15] MEDS: methylPREDNISolone sod succ/PF 40mg inj. IV SCH (17:16)
--- NOTE | 2021-10-15 18:15 | NUR ---
Problems reprioritized. Patient report given, questions answered & plan of care reviewed with RIKKI Kaplan.
--- NOTE | 2021-10-15 18:36 | NUR ---
Patient in room ORTHO 4024. I have received report from Jacquelyn and had the opportunity to ask questions and assume patient care.
[2021-10-15] MEDS: guaiFENesin 200 MG/10 ML oral syrup UD cup PO PRN (20:06)
[2021-10-15] MEDS: insulin glargine (Lantus) pen - multi-dose SQ SCH (21:14)
[2021-10-15] MEDS: risperiDONE 0.5mg tablet PO SCH (21:15)
[2021-10-16 02:00] VITALS: BP 132/44
[2021-10-16 04:00] VITALS: BP 128/50
[2021-10-16] MEDS: benzonatate 100mg capsule PO PRN ×2 (05:33→22:07)
--- NOTE | 2021-10-16 06:28 | NUR ---
Problems reprioritized. Patient report given, questions answered & plan of care reviewed with RIKKI Pastor.
[2021-10-16] MEDS: methylPREDNISolone sod succ/PF 40mg inj. IV SCH ×2 (07:49→16:58)
[2021-10-16] MEDS: furosemide 20 MG/2 ML vial IV SCH ×2 (07:52→19:18)
[2021-10-16] MEDS: aspirin 81mg, enteric-coated 1 TAB TABLET.DR PO SCH (07:54)
[2021-10-16] MEDS: buPROPion SR 150mg tablet PO SCH (07:54)
[2021-10-16] MEDS: docusate sod 100mg capsule PO SCH ×2 (07:54→19:18)
[2021-10-16] MEDS: FLUoxetine 20mg capsule PO SCH (07:55)
[2021-10-16] MEDS: zinc sulfate 220mg capsule PO SCH ×3 (07:55→19:18)
[2021-10-16] MEDS: cholecalciferol (vitamin D3) 1,000 unit (25mcg) tablet PO SCH (07:56)
[2021-10-16] MEDS: diltiazem CD 180mg cap (once-daily) PO SCH (07:56)
[2021-10-16] MEDS: enoxaparin 60mg/0.6ml syringe SUBCUT SCH ×2 (07:57→19:18)
[2021-10-16] MEDS: nystatin 15 GM powder TP SCH ×2 (07:58→19:30)
[2021-10-16] MEDS: pantoprazole 40mg Tablet.DR PO SCH (07:58)
[2021-10-16 08:00] LABS: BASOPHILS % (AUTO) 0.2 % (0-1); EOSINOPHILS % (AUTO) 0 % (0-6); HEMATOCRIT 44.3 % (35.0-45.0); HEMOGLOBIN 14.8 g/dl (12.0-16.0); LYMPHOCYTES # (AUTO) 0.2 X10'3 (1.1-4.8); LYMPHOCYTES % (AUTO) 2.5 % (21-51); MEAN CORPUSCULAR HEMOGLOBIN 29.7 PG (27.0-31.0); MEAN CORPUSCULAR HGB CONC 33.5 g/dL (33.0-36.5); MEAN CORPUSCULAR VOLUME 88.9 FL (78-98); MEAN PLATELET VOLUME 9.6 FL (7.4-10.4); MONOCYTES # (AUTO) 0.6 X10'3 (0-0.9); MONOCYTES % (AUTO) 6.1 % (2-12); NEUTROPHILS # (AUTO) 8.6 X10'3 (1.8-7.7); NEUTROPHILS % (AUTO) 91.2 % (42-75); PLATELET COUNT 503 X10'3 (140-440); RED BLOOD COUNT 4.98 X10'6 (4.20-5.60); WHITE BLOOD COUNT 9.4 X10'3 (4.5-11.0)
[2021-10-16] MEDS: BARICITINIB 2 MG TABLET PO SCH (08:05)
[2021-10-16] MEDS: magnesium hydroxide 30ml (MOM) UD suspension PO PRN (08:05)
[2021-10-16 08:46] LABS: D-DIMER 0.56 MG/L FEU (0-0.50)
[2021-10-16 08:56] LABS: ALBUMIN 2.5 G/DL (3.4-5.0); ANION GAP 6 (8-16); BLOOD UREA NITROGEN 33 MG/DL (7-18); BUN/CREATININE RATIO 33.3 (6.6-38.0); C-REACTIVE PROTEIN 0.81 MG/DL (0.0-0.5); CALCIUM 8.2 MG/DL (8.5-10.1); CHLORIDE 101 MMOL/L (99-107); CREATININE 0.99 MG/DL (0.40-0.90); GLUCOSE 79 MG/DL (70-104); POTASSIUM 4.1 MMOL/L (3.5-5.1); SODIUM 138 MMOL/L (135-145); TOTAL CARBON DIOXIDE 31.2 MMOL/L (24-32); eGFR 56 ML/MIN
[2021-10-16 09:37] VITALS: BP 131/57
[2021-10-16] MEDS: insulin Lispro (HumaLOG) vial - multi-dose SQ SCH ×2 (13:33→19:16)
[2021-10-16 15:07] VITALS: BP 148/59
[2021-10-16 18:00] VITALS: BP 140/50
--- NOTE | 2021-10-16 18:15 | NUR ---
Report given to Yudelka BRANDT, all questions answered. Pt appears stable in room with 02 sat of 91-93% She has just finished eating dinner.
--- NOTE | 2021-10-16 18:16 | NUR ---
Patient in room ORTHO 4024A. I have received report from RIKKI Pastor and had the opportunity to ask questions and assume patient care.
[2021-10-16] MEDS: lactose-reduced food (Ensure Enlive) - 237ml bottle PO SCH (18:57)
[2021-10-16] MEDS: risperiDONE 0.5mg tablet PO SCH (19:18)
[2021-10-16] MEDS: guaiFENesin 200 MG/10 ML oral syrup UD cup PO PRN (19:18)
[2021-10-16] MEDS: normal saline 1000ml 1,000 ML IV SCH (20:45)
[2021-10-16 22:00] VITALS: BP 144/71
[2021-10-16] MEDS: insulin glargine (Lantus) pen - multi-dose SQ SCH (22:06)
[2021-10-16] MEDS: morphine 2 MG/ML inj. syringe IV PRN (22:07)
--- NOTE | 2021-10-17 00:04 | NUR ---
HFNC cannula tubing . Patient having epistaxis at the moment. Aerosol mask placed on tubing temporarly to provide warm humidified oxygen to patient. SpO2 maintaining at 93-94%. Patient requests to use mask "for a while" due to her bloody nose. RN's and RT to monitor. Addendum: 10/17/21 at 0015 by Walter Joshua RT Amended: Links added.
--- NOTE | 2021-10-17 00:10 | NUR ---
Patient found to have nose bleeding. Notified MD Shakila. ordered CBC, and stopped all current coagulant medication. Patient's head of bed lowered, applied ice to area and advised patient to not pick nose, blow nose excessively, or touch that nose often. Encouraged to keep head elevated, and apply ice often. Patient verbalized understanding. Will continue to monitor.
[2021-10-17 00:32] LABS: BASOPHILS % (AUTO) 0 % (0-1); EOSINOPHILS % (AUTO) 0 % (0-6); HEMATOCRIT 41.2 % (35.0-45.0); HEMOGLOBIN 14.3 g/dl (12.0-16.0); LYMPHOCYTES # (AUTO) 0.5 X10'3 (1.1-4.8); LYMPHOCYTES % (AUTO) 3.4 % (21-51); MEAN CORPUSCULAR HEMOGLOBIN 30.4 PG (27.0-31.0); MEAN CORPUSCULAR HGB CONC 34.8 g/dL (33.0-36.5); MEAN CORPUSCULAR VOLUME 87.3 FL (78-98); MEAN PLATELET VOLUME 9.3 FL (7.4-10.4); MONOCYTES # (AUTO) 0.8 X10'3 (0-0.9); MONOCYTES % (AUTO) 5.6 % (2-12); NEUTROPHILS # (AUTO) 13.1 X10'3 (1.8-7.7); PLATELET COUNT 533 X10'3 (140-440); RED BLOOD COUNT 4.71 X10'6 (4.20-5.60); RED CELL DISTRIBUTION WIDTH 12.8 % (11.5-14.5); WHITE BLOOD COUNT 14.4 X10'3 (4.5-11.0)
[2021-10-17 02:00] VITALS: BP 147/64
--- NOTE | 2021-10-17 04:15 | NUR ---
ER Doctor came to perform rocket rhino procedure for patient, but found that nose bleeding had ceased. Thus, no intervention needed. Patient resting comfortable with no apparent distress. Will continue to monitor.
[2021-10-17 06:00] VITALS: BP 165/54
--- NOTE | 2021-10-17 06:40 | NUR ---
Patient in room ORTHO 4024A. I have received report from RIKKI Jha and had the opportunity to ask questions and assume patient care.
[2021-10-17 07:13] LABS: BASOPHILS % (AUTO) 0.1 % (0-1); EOSINOPHILS % (AUTO) 0.1 % (0-6); HEMATOCRIT 41.4 % (35.0-45.0); HEMOGLOBIN 13.7 g/dl (12.0-16.0); LYMPHOCYTES # (AUTO) 0.6 X10'3 (1.1-4.8); LYMPHOCYTES % (AUTO) 4.2 % (21-51); MEAN CORPUSCULAR HEMOGLOBIN 29.7 PG (27.0-31.0); MEAN CORPUSCULAR HGB CONC 33.2 g/dL (33.0-36.5); MEAN CORPUSCULAR VOLUME 89.4 FL (78-98); MEAN PLATELET VOLUME 9.5 FL (7.4-10.4); MONOCYTES # (AUTO) 1.2 X10'3 (0-0.9); MONOCYTES % (AUTO) 8.3 % (2-12); NEUTROPHILS # (AUTO) 12.4 X10'3 (1.8-7.7); NEUTROPHILS % (AUTO) 87.3 % (42-75); PLATELET COUNT 540 X10'3 (140-440); RED BLOOD COUNT 4.63 X10'6 (4.20-5.60); RED CELL DISTRIBUTION WIDTH 12.8 % (11.5-14.5); WHITE BLOOD COUNT 14.1 X10'3 (4.5-11.0)
[2021-10-17 07:23] LABS: D-DIMER 0.48 MG/L FEU (0-0.50)
[2021-10-17 07:40] LABS: ALBUMIN 2.4 G/DL (3.4-5.0); ANION GAP 5 (8-16); BLOOD UREA NITROGEN 37 MG/DL (7-18); BUN/CREATININE RATIO 35.9 (6.6-38.0); C-REACTIVE PROTEIN 0.36 MG/DL (0.0-0.5); CALCIUM 8.1 MG/DL (8.5-10.1); CHLORIDE 98 MMOL/L (99-107); CREATININE 1.03 MG/DL (0.40-0.90); GLUCOSE 83 MG/DL (70-104); POTASSIUM 4.1 MMOL/L (3.5-5.1); SODIUM 134 MMOL/L (135-145); TOTAL CARBON DIOXIDE 30.6 MMOL/L (24-32); eGFR 53 ML/MIN
[2021-10-17] MEDS: cholecalciferol (vitamin D3) 1,000 unit (25mcg) tablet PO SCH (07:40)
[2021-10-17] MEDS: docusate sod 100mg capsule PO SCH ×2 (07:40→20:46)
[2021-10-17] MEDS: zinc sulfate 220mg capsule PO SCH ×3 (07:40→20:46)
[2021-10-17] MEDS: BARICITINIB 2 MG TABLET PO SCH (07:40)
[2021-10-17] MEDS: buPROPion SR 150mg tablet PO SCH (07:40)
[2021-10-17] MEDS: pantoprazole 40mg Tablet.DR PO SCH (07:40)
[2021-10-17] MEDS: nystatin 15 GM powder TP SCH ×2 (07:41→20:49)
[2021-10-17] MEDS: diltiazem CD 180mg cap (once-daily) PO SCH (07:41)
[2021-10-17] MEDS: FLUoxetine 20mg capsule PO SCH (07:41)
[2021-10-17] MEDS: methylPREDNISolone sod succ/PF 40mg inj. IV SCH ×2 (07:41→17:10)
[2021-10-17] MEDS: furosemide 20 MG/2 ML vial IV SCH ×2 (07:41→20:46)
[2021-10-17] MEDS: lactose-reduced food (Ensure Enlive) - 237ml bottle PO SCH ×3 (08:00→18:00)
--- NOTE | 2021-10-17 08:53 | NUR ---
Patient in room ORTHO 4024. I have received report from Yudelka English and had the opportunity to ask questions and assume patient care.
--- NOTE | 2021-10-17 09:09 | NUR ---
Paged Dr. Hawkins regarding nosebleed and hematoma. PAGER ID: [phone] MESSAGE: [phone] Claritza Saul. Patient still experiencing nosebleed, currently using tampon to stop the flow. Supplies to do rocket rhino at bedside. Could you also come look at a large hematoma on her right abdomen. Kate ext. [phone]
[2021-10-17] MEDS: insulin Lispro (HumaLOG) vial - multi-dose SQ SCH ×3 (09:26→18:48)
[2021-10-17 10:00] VITALS: BP 145/68
--- NOTE | 2021-10-17 10:05 | NUR ---
Dr. Hawkins came to see pt. Said to watch hematoma, and did a rhino rocket on pt's right nostril to help stop the bleeding. said it needs to stay in place for 48 hours. will monitor back of pt's throat for blood to make sure it is not still bleeding.
--- NOTE | 2021-10-17 10:30 | NUR ---
Paged Dr. Hawkins regarding rocket rhino falling out. PAGER ID: [phone] MESSAGE: [phone] Claritza Saul. Rocket rhino came out of nose. Will pack with tampon for now. Kate BRANDT ext [phone]
[2021-10-17] MEDS: morphine 2 MG/ML inj. syringe IV PRN ×2 (11:24→21:13)
[2021-10-17 14:00] VITALS: BP 142/72
[2021-10-17] MEDS: oxymetazoline 15 ML nasal spray NS SCH ×2 (14:20→20:49)
--- NOTE | 2021-10-17 17:25 | NUR ---
Paged Dr. Hawkins regarding small blood clot in Paige. PAGER ID: [phone] MESSAGE: [id number], Claritza Saul. Patient has had traces of blood in the urine, small pea sized clot was found in Paige tube this evening. Just making you aware of the new finding. Kate esposito [phone].
--- NOTE | 2021-10-17 18:23 | NUR ---
Orientee documentation: I have reviewed and agree with all interventions, assessments performed and documented by RIKKI Love.
--- NOTE | 2021-10-17 18:24 | NUR ---
Problems reprioritized. Patient report given, questions answered & plan of care reviewed with RIKKI Lynn.
--- NOTE | 2021-10-17 18:24 | NUR ---
Problems reprioritized. Patient report given, questions answered & plan of care reviewed with Leah BRANDT, patient stable at transfer of care.
[2021-10-17 19:06] VITALS: BP 135/72
[2021-10-17] MEDS: guaiFENesin 200 MG/10 ML oral syrup UD cup PO PRN (19:20)
[2021-10-17] MEDS: risperiDONE 0.5mg tablet PO SCH (20:46)
[2021-10-17] MEDS: insulin glargine (Lantus) pen - multi-dose SQ SCH (20:56)
[2021-10-17] MEDS: benzonatate 100mg capsule PO PRN (21:07)
[2021-10-17] MEDS: ondansetron/PF 4mg/2ml inj IV PRN (21:26)
[2021-10-17 22:00] VITALS: BP 94/58
--- NOTE | 2021-10-18 06:30 | NUR ---
Problems reprioritized. Patient report given, questions answered & plan of care reviewed with arun Luther.
[2021-10-18 06:36] VITALS: BP 135/72
--- NOTE | 2021-10-18 06:36 | NUR ---
Patient in room ORTHO 4024. I have received report from Leah BRANDT and had the opportunity to ask questions and assume patient care.
[2021-10-18] MEDS: BARICITINIB 2 MG TABLET PO SCH (07:13)
[2021-10-18] MEDS: diltiazem CD 180mg cap (once-daily) PO SCH (07:13)
[2021-10-18] MEDS: cholecalciferol (vitamin D3) 1,000 unit (25mcg) tablet PO SCH (07:14)
[2021-10-18] MEDS: buPROPion SR 150mg tablet PO SCH (07:14)
[2021-10-18] MEDS: zinc sulfate 220mg capsule PO SCH ×3 (07:14→20:38)
[2021-10-18] MEDS: pantoprazole 40mg Tablet.DR PO SCH (07:14)
[2021-10-18] MEDS: FLUoxetine 20mg capsule PO SCH (07:14)
[2021-10-18] MEDS: furosemide 20 MG/2 ML vial IV SCH (07:14)
[2021-10-18] MEDS: docusate sod 100mg capsule PO SCH ×2 (07:14→20:38)
[2021-10-18] MEDS: methylPREDNISolone sod succ/PF 40mg inj. IV SCH ×2 (07:14→17:38)
[2021-10-18] MEDS: nystatin 15 GM powder TP SCH ×2 (07:14→20:42)
[2021-10-18] MEDS: guaiFENesin 200 MG/10 ML oral syrup UD cup PO PRN ×2 (07:31→18:32)
[2021-10-18 07:33] LABS: BASOPHILS % (AUTO) 0.2 % (0-1); EOSINOPHILS % (AUTO) 0.1 % (0-6); HEMATOCRIT 38.4 % (35.0-45.0); HEMOGLOBIN 12.9 g/dl (12.0-16.0); LYMPHOCYTES # (AUTO) 0.6 X10'3 (1.1-4.8); LYMPHOCYTES % (AUTO) 4.1 % (21-51); MEAN CORPUSCULAR HEMOGLOBIN 29.7 PG (27.0-31.0); MEAN CORPUSCULAR HGB CONC 33.7 g/dL (33.0-36.5); MEAN CORPUSCULAR VOLUME 88.3 FL (78-98); MEAN PLATELET VOLUME 9.5 FL (7.4-10.4); MONOCYTES # (AUTO) 1.1 X10'3 (0-0.9); MONOCYTES % (AUTO) 7.7 % (2-12); NEUTROPHILS # (AUTO) 12.8 X10'3 (1.8-7.7); NEUTROPHILS % (AUTO) 87.9 % (42-75); PLATELET COUNT 481 X10'3 (140-440); RED BLOOD COUNT 4.35 X10'6 (4.20-5.60); RED CELL DISTRIBUTION WIDTH 12.9 % (11.5-14.5); WHITE BLOOD COUNT 14.5 X10'3 (4.5-11.0)
[2021-10-18 07:41] LABS: D-DIMER 0.39 MG/L FEU (0-0.50)
[2021-10-18 07:54] LABS: ALBUMIN 2.4 G/DL (3.4-5.0); ANION GAP 5 (8-16); BLOOD UREA NITROGEN 39 MG/DL (7-18); BUN/CREATININE RATIO 33.6 (6.6-38.0); C-REACTIVE PROTEIN 0.31 MG/DL (0.0-0.5); CALCIUM 8.3 MG/DL (8.5-10.1); CHLORIDE 100 MMOL/L (99-107); CREATININE 1.16 MG/DL (0.40-0.90); GLUCOSE 128 MG/DL (70-104); POTASSIUM 4.5 MMOL/L (3.5-5.1); SODIUM 137 MMOL/L (135-145); TOTAL CARBON DIOXIDE 32.1 MMOL/L (24-32); eGFR 46 ML/MIN
[2021-10-18] MEDS: lactose-reduced food (Ensure Enlive) - 237ml bottle PO SCH ×3 (08:04→18:00)
[2021-10-18] MEDS: oxymetazoline 15 ML nasal spray NS SCH ×2 (08:04→20:43)
[2021-10-18] MEDS: insulin Lispro (HumaLOG) vial - multi-dose SQ SCH ×3 (08:21→18:31)
--- NOTE | 2021-10-18 08:39 | NUR ---
Titrated fi02 down to 85%, RT at bedside decreased o2 to 45 liters and 70% fi02. Resting on right side at this time.
[2021-10-18 09:59] VITALS: BP 125/60
[2021-10-18] MEDS ORDERED: nitroGLYCERIN 0.4mg/hour patch TD ONE (12:05)
[2021-10-18] MEDS: mag hydrox/Alum hydrox/simeth 30ml oral suspension PO PRN (12:13)
--- NOTE | 2021-10-18 12:21 | NUR ---
Patient complained of chest pain 8/10 sharp in nature over left chest radiating to arm and back, EKG done showed normal sinus rhythm. Hospitalist paged, troponins ordered and nitro patch applied to right shoulder SBP at this time is 141. Gave patient maalox and tylenol for pain, upon reassessment of pain before putting nitro patch on patient stated the pain was feeling better at this time. Eating lunch and in no distress at this time.
[2021-10-18 14:00] VITALS: BP 120/56
--- NOTE | 2021-10-18 15:45 | NUR ---
F/u 10/18: Pt PO continues to fluctuate though improving ~67% avg past 10 meals per EMR. Remains on 45L HFNC per EMR likely impacting PO trends. Ensure Enlive ONS verified in EMR 10/16 after dinner w/ PO 100% two ONS consumed since then. Noted ONS "not available" documented in EMR; dietary notified of ONS w/ meals. Pt currently partially meeting estimated protein/kcal needs. ROMARIO d/w RN regarding current PO trends; recommend changing Ensure Enlive to BIDBL if MD agreeable. LBM 10/17 receiving routine colace. Will continue to monitor for further nutrition intervention needs. Recommendations: 1) Continue CHO controlled diet; encourage PO 2) Ensure Enlive ONS; change to BIDBL if MD agreeable given improving PO trends; encourage PO 3) Routine bowel care 4) Scaled weight this admit; weekly scaled weights thereafter Addendum: 10/18/21 at [address] Amended: Links added.
[2021-10-18 18:00] VITALS: BP 113/48
--- NOTE | 2021-10-18 18:14 | NUR ---
Problems reprioritized. Patient report given, questions answered & plan of care reviewed with RIKKI SANDY.
--- NOTE | 2021-10-18 18:24 | NUR ---
Problems reprioritized. Patient report given, questions answered & plan of care reviewed with RIKKI BLACK.
[2021-10-18] MEDS: benzonatate 100mg capsule PO PRN (20:38)
[2021-10-18] MEDS: risperiDONE 0.5mg tablet PO SCH (20:38)
[2021-10-18] MEDS: enoxaparin 40mg/0.4ml syringe SUBCUT SCH (20:38)
[2021-10-18] MEDS: insulin glargine (Lantus) pen - multi-dose SQ SCH (20:40)
[2021-10-18] MEDS: morphine 2 MG/ML inj. syringe IV PRN (20:59)
[2021-10-18 21:54] VITALS: BP 120/54
[2021-10-19] MEDS: normal saline 1000ml 1,000 ML IV SCH (00:59)
[2021-10-19] MEDS: morphine 2 MG/ML inj. syringe IV PRN ×2 (00:59→22:02)
[2021-10-19 02:00] VITALS: BP 131/49
[2021-10-19 06:00] VITALS: BP 128/57
--- NOTE | 2021-10-19 06:19 | NUR ---
Problems reprioritized. Patient report given, questions answered & plan of care reviewed with RIKKI WHITE.
[2021-10-19] MEDS: guaiFENesin 200 MG/10 ML oral syrup UD cup PO PRN ×2 (07:15→18:30)
[2021-10-19] MEDS: methylPREDNISolone sod succ/PF 40mg inj. IV SCH ×2 (07:19→17:24)
[2021-10-19] MEDS: pantoprazole 40mg Tablet.DR PO SCH (07:19)
[2021-10-19] MEDS: nystatin 15 GM powder TP SCH ×2 (07:30→22:07)
[2021-10-19] MEDS: oxymetazoline 15 ML nasal spray NS SCH ×2 (07:30→22:07)
[2021-10-19] MEDS: lactose-reduced food (Ensure Enlive) - 237ml bottle PO SCH ×3 (08:00→18:00)
[2021-10-19] MEDS: insulin Lispro (HumaLOG) vial - multi-dose SQ SCH ×3 (09:27→18:30)
[2021-10-19] MEDS: furosemide 20 MG/2 ML vial IV SCH (09:33)
[2021-10-19] MEDS: FLUoxetine 20mg capsule PO SCH (09:34)
[2021-10-19] MEDS: cholecalciferol (vitamin D3) 1,000 unit (25mcg) tablet PO SCH (09:34)
[2021-10-19] MEDS: zinc sulfate 220mg capsule PO SCH ×3 (09:34→21:57)
[2021-10-19] MEDS: diltiazem CD 180mg cap (once-daily) PO SCH (09:35)
[2021-10-19] MEDS: buPROPion SR 150mg tablet PO SCH (09:35)
[2021-10-19] MEDS: docusate sod 100mg capsule PO SCH ×2 (09:42→21:57)
[2021-10-19] MEDS: benzonatate 100mg capsule PO PRN ×2 (13:08→21:57)
[2021-10-19 15:00] VITALS: BP 130/61
[2021-10-19] MEDS: risperiDONE 0.5mg tablet PO SCH (21:57)
[2021-10-19 22:00] VITALS: BP 135/53
[2021-10-19] MEDS: insulin glargine (Lantus) pen - multi-dose SQ SCH (22:00)
[2021-10-19] MEDS: enoxaparin 40mg/0.4ml syringe SUBCUT SCH (22:02)
[2021-10-20 01:56] VITALS: BP 130/47
[2021-10-20 06:00] VITALS: BP 144/70
--- NOTE | 2021-10-20 06:30 | NUR ---
RECEIVED REPORT FROM RIKKI BLACK
--- NOTE | 2021-10-20 06:31 | NUR ---
Problems reprioritized. Patient report given, questions answered & plan of care reviewed with RIKKI CHRISTINA.
[2021-10-20 06:49] LABS: D-DIMER 0.28 MG/L FEU (0-0.50)
[2021-10-20 06:54] LABS: ALBUMIN 2.3 G/DL (3.4-5.0); ANION GAP 4 (8-16); BLOOD UREA NITROGEN 31 MG/DL (7-18); BUN/CREATININE RATIO 33.3 (6.6-38.0); C-REACTIVE PROTEIN 0.14 MG/DL (0.0-0.5); CALCIUM 8.4 MG/DL (8.5-10.1); CHLORIDE 100 MMOL/L (99-107); CREATININE 0.93 MG/DL (0.40-0.90); GLUCOSE 113 MG/DL (70-104); POTASSIUM 4.1 MMOL/L (3.5-5.1); SODIUM 136 MMOL/L (135-145); TOTAL CARBON DIOXIDE 32.1 MMOL/L (24-32); eGFR 60 ML/MIN
[2021-10-20 07:20] LABS: BASOPHILS % (AUTO) 0.1 % (0-1); EOSINOPHILS % (AUTO) 0 % (0-6); HEMATOCRIT 33.7 % (35.0-45.0); HEMOGLOBIN 11.2 g/dl (12.0-16.0); LYMPHOCYTES # (AUTO) 0.6 X10'3 (1.1-4.8); MEAN CORPUSCULAR HEMOGLOBIN 29.7 PG (27.0-31.0); MEAN CORPUSCULAR HGB CONC 33.3 g/dL (33.0-36.5); MEAN PLATELET VOLUME 9.5 FL (7.4-10.4); MONOCYTES # (AUTO) 0.6 X10'3 (0-0.9); MONOCYTES % (AUTO) 4.9 % (2-12); NEUTROPHILS # (AUTO) 11.5 X10'3 (1.8-7.7); PLATELET COUNT 427 X10'3 (140-440); RED BLOOD COUNT 3.78 X10'6 (4.20-5.60); RED CELL DISTRIBUTION WIDTH 12.5 % (11.5-14.5); WHITE BLOOD COUNT 12.8 X10'3 (4.5-11.0)
[2021-10-20] MEDS: cholecalciferol (vitamin D3) 1,000 unit (25mcg) tablet PO SCH (07:21)
[2021-10-20] MEDS: buPROPion SR 150mg tablet PO SCH (07:21)
[2021-10-20] MEDS: zinc sulfate 220mg capsule PO SCH ×3 (07:21→20:21)
[2021-10-20] MEDS: diltiazem CD 180mg cap (once-daily) PO SCH (07:21)
[2021-10-20] MEDS: pantoprazole 40mg Tablet.DR PO SCH (07:21)
[2021-10-20] MEDS: FLUoxetine 20mg capsule PO SCH (07:21)
[2021-10-20] MEDS: furosemide 20 MG/2 ML vial IV SCH (07:22)
[2021-10-20] MEDS: docusate sod 100mg capsule PO SCH ×2 (07:22→20:21)
[2021-10-20] MEDS: methylPREDNISolone sod succ/PF 40mg inj. IV SCH (07:23)
[2021-10-20] MEDS: guaiFENesin 200 MG/10 ML oral syrup UD cup PO PRN ×3 (07:26→20:22)
[2021-10-20] MEDS: oxymetazoline 15 ML nasal spray NS SCH ×2 (07:28→20:21)
[2021-10-20] MEDS: nystatin 15 GM powder TP SCH ×2 (07:28→20:21)
[2021-10-20] MEDS: lactose-reduced food (Ensure Enlive) - 237ml bottle PO SCH ×3 (07:28→17:43)
[2021-10-20 08:27] LABS: PLATELET ESTIMATE NORMAL; TOTAL CELLS COUNTED 100
[2021-10-20] MEDS: insulin Lispro (HumaLOG) vial - multi-dose SQ SCH ×2 (08:53→13:27)
[2021-10-20] MEDS: benzonatate 100mg capsule PO PRN ×3 (09:00→20:17)
[2021-10-20 11:00] VITALS: BP 136/63
[2021-10-20 15:00] VITALS: BP 143/61
--- NOTE | 2021-10-20 18:26 | NUR ---
gave report to arun orozco
[2021-10-20 18:57] VITALS: BP 151/67
[2021-10-20] MEDS: risperiDONE 0.5mg tablet PO SCH (20:19)
[2021-10-20] MEDS: morphine 2 MG/ML inj. syringe IV PRN ×2 (20:19→21:24)
[2021-10-20] MEDS: enoxaparin 40mg/0.4ml syringe SUBCUT SCH (20:20)
[2021-10-20] MEDS: mag hydrox/Alum hydrox/simeth 30ml oral suspension PO PRN (20:21)
[2021-10-20] MEDS: normal saline 1000ml 1,000 ML IV SCH (21:24)
[2021-10-20] MEDS: insulin glargine (Lantus) pen - multi-dose SQ SCH (21:47)
[2021-10-20 22:00] VITALS: BP 131/52
[2021-10-21] MEDS: morphine 2 MG/ML inj. syringe IV PRN (01:57)
[2021-10-21 02:00] VITALS: BP 123/65
[2021-10-21 07:00] VITALS: BP 122/51
[2021-10-21] MEDS: normal saline 1000ml 1,000 ML IV SCH (07:46)
[2021-10-21] MEDS: guaiFENesin 200 MG/10 ML oral syrup UD cup PO PRN (07:57)
[2021-10-21] MEDS: magnesium hydroxide 30ml (MOM) UD suspension PO PRN (07:57)
[2021-10-21] MEDS: pantoprazole 40mg Tablet.DR PO SCH (07:58)
[2021-10-21] MEDS: buPROPion SR 150mg tablet PO SCH (07:58)
[2021-10-21] MEDS: zinc sulfate 220mg capsule PO SCH ×2 (07:58→12:55)
[2021-10-21] MEDS: docusate sod 100mg capsule PO SCH (07:58)
[2021-10-21] MEDS: diltiazem CD 180mg cap (once-daily) PO SCH (07:58)
[2021-10-21] MEDS: cholecalciferol (vitamin D3) 1,000 unit (25mcg) tablet PO SCH (07:58)
[2021-10-21] MEDS: FLUoxetine 20mg capsule PO SCH (07:58)
[2021-10-21] MEDS: nystatin 15 GM powder TP SCH (07:58)
[2021-10-21] MEDS ORDERED: methylPREDNISolone sod succ/PF 40mg inj. IV SCH (08:00)
[2021-10-21] MEDS: lactose-reduced food (Ensure Enlive) - 237ml bottle PO SCH ×2 (08:00→13:00)
[2021-10-21] MEDS: furosemide 20 MG/2 ML vial IV SCH (08:06)
[2021-10-21 11:00] VITALS: BP 124/59
[2021-10-21] MEDS: benzonatate 100mg capsule PO PRN (12:55)
[2021-10-21] MEDS: insulin Lispro (HumaLOG) vial - multi-dose SQ SCH (13:32)
[2021-10-21 15:00] VITALS: BP 147/60
--- NOTE | 2021-10-21 16:01 | NUR ---
Report called to Tanesha BRANDT at [facility].
--- NOTE | 2021-10-21 17:40 | NUR ---
patient discharged to [facility], transported via stretcher all paperwork and personal belongings sent home with patient.
== END 2021-10-21 17:53 | DRG 177 ==
LOC: ER 16:55 → ED HOLD 20:49 → EDBEDREQSVC 23:06 → EDBEDREQ 23:06 → ORTHO 4S 23:45 → PCU 3S 10-19 20:40
PROVIDERS: ADMIT Family Medicine; ATTEND Internal Medicine
PROC: B32T1ZZ Computerized Tomography (CT Scan) of Left Pulmonary Artery using Low Osmolar Contrast (ICD-10-PCS; 2021-10-04)
PROC: B3201ZZ Computerized Tomography (CT Scan) of Thoracic Aorta using Low Osmolar Contrast (ICD-10-PCS; 2021-10-04)
PROC: B32S1ZZ Computerized Tomography (CT Scan) of Right Pulmonary Artery using Low Osmolar Contrast (ICD-10-PCS; 2021-10-04)
PROC: XW0DXM6 Introduction of Baricitinib into Mouth and Pharynx, External Approach, New Technology Group 6 (ICD-10-PCS; principal; 2021-10-05)
PROC: 3E02340 Introduction of Influenza Vaccine into Muscle, Percutaneous Approach (ICD-10-PCS; 2021-10-05)
PROC: 5A09357 Assistance with Respiratory Ventilation, Less than 24 Consecutive Hours, Continuous Positive Airway Pressure (ICD-10-PCS; 2021-10-08)
PROC: 5A0935A Assistance with Respiratory Ventilation, Less than 24 Consecutive Hours, High Flow/Velocity Cannula (ICD-10-PCS; 2021-10-08)
PROC: 5A0935A Assistance with Respiratory Ventilation, Less than 24 Consecutive Hours, High Flow/Velocity Cannula (ICD-10-PCS; 2021-10-09)
PROC: 3E02340 Introduction of Influenza Vaccine into Muscle, Percutaneous Approach (ICD-10-PCS; 2021-10-10)
PROC: 5A0935A Assistance with Respiratory Ventilation, Less than 24 Consecutive Hours, High Flow/Velocity Cannula (ICD-10-PCS; 2021-10-10)
PROC: 5A0945A Assistance with Respiratory Ventilation, 24-96 Consecutive Hours, High Flow/Velocity Cannula (ICD-10-PCS; 2021-10-11)
PROC: 5A09357 Assistance with Respiratory Ventilation, Less than 24 Consecutive Hours, Continuous Positive Airway Pressure (ICD-10-PCS; 2021-10-13)
PROC: 5A0945A Assistance with Respiratory Ventilation, 24-96 Consecutive Hours, High Flow/Velocity Cannula (ICD-10-PCS; 2021-10-13)
PROC: 5A09357 Assistance with Respiratory Ventilation, Less than 24 Consecutive Hours, Continuous Positive Airway Pressure (ICD-10-PCS; 2021-10-16)
PROC: 5A0945A Assistance with Respiratory Ventilation, 24-96 Consecutive Hours, High Flow/Velocity Cannula (ICD-10-PCS; 2021-10-17)
PROC: 5A0935A Assistance with Respiratory Ventilation, Less than 24 Consecutive Hours, High Flow/Velocity Cannula (ICD-10-PCS; 2021-10-20)
DX: U07.1 COVID-19 (principal); J96.01 Acute respiratory failure with hypoxia; I50.33 Acute on chronic diastolic (congestive) heart failure; I21.A1 Myocardial infarction type 2; J12.82 Pneumonia due to coronavirus disease 2019; N17.9 Acute kidney failure, unspecified; I13.0 Hypertensive heart and chronic kidney disease with heart failure and stage 1 through stage 4 chronic kidney disease, or unspecified chronic kidney disease; Z68.41 Body mass index [BMI] 40.0-44.9, adult; N18.9 Chronic kidney disease, unspecified; E11.22 Type 2 diabetes mellitus with diabetic chronic kidney disease; F32.A Depression, unspecified; F41.9 Anxiety disorder, unspecified; R79.82 Elevated C-reactive protein (CRP); E66.01 Morbid (severe) obesity due to excess calories; E11.65 Type 2 diabetes mellitus with hyperglycemia; E78.5 Hyperlipidemia, unspecified; J45.909 Unspecified asthma, uncomplicated; R04.0 Epistaxis; Z23 Encounter for immunization; S30.1XXA Contusion of abdominal wall, initial encounter; Z88.2 Allergy status to sulfonamides; Z88.8 Allergy status to other drugs, medicaments and biological substances; Z91.041 Radiographic dye allergy status; Z80.3 Family history of malignant neoplasm of breast; Z83.3 Family history of diabetes mellitus; Z87.891 Personal history of nicotine dependence; Z90.49 Acquired absence of other specified parts of digestive tract; Z91.011 Allergy to milk products; Z88.5 Allergy status to narcotic agent; Z91.018 Allergy to other foods; Z91.013 Allergy to seafood; Z79.899 Other long term (current) drug therapy; Z79.4 Long term (current) use of insulin; Z79.01 Long term (current) use of anticoagulants; Y93.89 Activity, other specified; Y99.8 Other external cause status
CPT/HCPCS: 36415; 71045; 71275; 80048; 80053; 80061; 82550; 82948; 83036; 83690; 83735; 83880; 84100; 84145; 84484; 85007; 85025; 85379; 85610; 85730; 86140; 87081; 87635; 93005; 93306; 94640; 94660; 94760; 97110; 97162; 97530; 99285; C9803; G0378; J0456; J0696; J1100; J1170; J1650; J1815; J1940; J2270; J2405; J2920; J2930; J7030; J7060; Q9967

== ENCOUNTER 2024-04-01 12:52 | Emergency (ER) | payer MEDICARE, OTHER ==
[~2024-04-01 12:52] MED LIST changes: +ALBU18HF2 PO; +ATOR10TA70 PO; -BECL7.3A INH; +BUPR-317 PO; +CETI-272 PO; -CETI10CA8 PO; +CHOL20002 PO; -EST1T PO; +ESTR1PAT30 TD; +FLO110IN PO; +FLUO-167 PO; -IRBE300T18 PO; -LEVA15HF4 INH; -NAPR-1154 PO; +NOVLG SQ; +NYSPWD TOP; -OMEP-84 PO; -ONDA4TAB12 PO; -PARO10TA85 PO; -SIMV-42 PO
== END 2024-04-01 13:35 | disposition left against medical advice (07) ==
LOC: ER 12:52
DX: S69.90XA Unspecified injury of unspecified wrist, hand and finger(s), initial encounter (principal); Z53.21 Procedure and treatment not carried out due to patient leaving prior to being seen by health care provider; X58.XXXA Exposure to other specified factors, initial encounter; Y93.89 Activity, other specified; Y92.89 Other specified places as the place of occurrence of the external cause; Y99.8 Other external cause status

== ENCOUNTER 2024-07-24 15:14 | Emergency (ER) | payer MEDICARE, OTHER ==
[~2024-07-24] VITALS: Ht 160 cm; Wt 113.6 kg
[~2024-07-24 15:14] MED LIST changes: -BUPR-317 PO; +BUPR-561 PO
[2024-07-24 16:41] LABS: BASOPHILS # (AUTO) 0.1 X10'3 (0-0.2); BASOPHILS % (AUTO) 1.2 % (0-1); EOSINOPHILS # (AUTO) 0.1 X10'3 (0-0.9); EOSINOPHILS % (AUTO) 1.3 % (0-6); HEMOGLOBIN 16.3 g/dl (12.0-16.0); LYMPHOCYTES # (AUTO) 1.4 X10'3 (1.1-4.8); LYMPHOCYTES % (AUTO) 18.8 % (21-51); MEAN CORPUSCULAR HEMOGLOBIN 30.5 PG (27.0-31.0); MEAN CORPUSCULAR HGB CONC 33.3 g/dL (33.0-36.5); MEAN CORPUSCULAR VOLUME 91.5 FL (78-98); MONOCYTES # (AUTO) 0.6 X10'3 (0-0.9); MONOCYTES % (AUTO) 8.8 % (2-12); NEUTROPHILS % (AUTO) 69.9 % (42-75); PLATELET COUNT 253 X10'3 (140-440); RED BLOOD COUNT 5.35 X10'6 (4.20-5.60); RED CELL DISTRIBUTION WIDTH 14.1 % (11.5-14.5); WHITE BLOOD COUNT 7.2 X10'3 (4.5-11.0)
[2024-07-24 16:58] LABS: ALBUMIN 3.5 G/DL (3.4-5.0); ANION GAP 9 (8-16); BLOOD UREA NITROGEN 12 MG/DL (7-18); BUN/CREATININE RATIO 11.8 (10.0-20.0); CALCIUM 9.3 MG/DL (8.5-10.1); CHLORIDE 107 MMOL/L (99-107); CREATININE 1.02 MG/DL (0.40-0.90); GLUCOSE 221 MG/DL (70-104); POTASSIUM 4.5 MMOL/L (3.5-5.1); PRO BRAIN NATRIURETIC PEPTIDE 155 PG/ML (0-125); SODIUM 139 MMOL/L (135-145); TOTAL CARBON DIOXIDE 22.8 MMOL/L (24-32); eCRCL 42 ML/MIN; eGFR 53 ML/MIN
[2024-07-24] MEDS: ketorolac trometh 15mg/ml vial 15 MG/ML ML IM ONE ×2 (18:59→19:22)
[2024-07-24 19:57] VITALS: PULSE 56
[2024-07-24] MEDS ORDERED: IBUP-2766 PO (19:59)
[2024-07-24] MEDS ORDERED: ACET160S PO (19:59)
[2024-07-24 20:20] VITALS: BP 184/82; RESP 15; TEMP 97.5; O2SAT 100
== END 2024-07-24 20:23 | disposition home or self-care (01) ==
LOC: ER 15:14
DX: B34.9 Viral infection, unspecified (principal); Z20.822 Contact with and (suspected) exposure to COVID-19; I10 Essential (primary) hypertension; J45.909 Unspecified asthma, uncomplicated; J44.9 Chronic obstructive pulmonary disease, unspecified; E11.9 Type 2 diabetes mellitus without complications; F41.9 Anxiety disorder, unspecified; Z88.2 Allergy status to sulfonamides; Z88.5 Allergy status to narcotic agent; Z88.8 Allergy status to other drugs, medicaments and biological substances; Z91.011 Allergy to milk products; Z91.013 Allergy to seafood; Z79.899 Other long term (current) drug therapy; Z79.4 Long term (current) use of insulin; Z98.890 Other specified postprocedural states; Z90.49 Acquired absence of other specified parts of digestive tract
CPT/HCPCS: 36415; 71045; 80048; 83880; 84484; 85025; 87811; 93005; 96372; 99285; J1885

== ENCOUNTER 2024-08-18 12:41 | Emergency (ER) | payer MEDICARE ==
[~2024-08-18] VITALS: Ht 160 cm; Wt 115.5 kg
[~2024-08-18 12:41] MED LIST changes: +ACET160S PO; +IBUP-2766 PO
[2024-08-18 13:48] LABS: EOSINOPHILS # (AUTO) 0.1 X10'3 (0-0.9); MEAN PLATELET VOLUME 10.3 FL (7.4-10.4); MONOCYTES # (AUTO) 0.5 X10'3 (0-0.9)
[2024-08-18 13:50] LABS: BASOPHILS # (AUTO) 0.1 X10'3 (0-0.2); BASOPHILS % (AUTO) 0.7 % (0-1); EOSINOPHILS % (AUTO) 0.9 % (0-6); HEMATOCRIT 46.1 % (35.0-45.0); HEMOGLOBIN 15.6 g/dl (12.0-16.0); LYMPHOCYTES % (AUTO) 12.9 % (21-51); MEAN CORPUSCULAR HEMOGLOBIN 30.9 PG (27.0-31.0); MEAN CORPUSCULAR HGB CONC 33.7 g/dL (33.0-36.5); MEAN CORPUSCULAR VOLUME 91.5 FL (78-98); MONOCYTES % (AUTO) 6.6 % (2-12); NEUTROPHILS # (AUTO) 5.9 X10'3 (1.8-7.7); NEUTROPHILS % (AUTO) 78.9 % (42-75); PLATELET COUNT 247 X10'3 (140-440); RED BLOOD COUNT 5.04 X10'6 (4.20-5.60); RED CELL DISTRIBUTION WIDTH 13.5 % (11.5-14.5); WHITE BLOOD COUNT 7.5 X10'3 (4.5-11.0)
[2024-08-18 14:06] LABS: ALANINE AMINOTRANSFERASE 17 U/L (12-78); ALBUMIN 3.5 G/DL (3.4-5.0); ALBUMIN/GLOBULIN RATIO 0.9 (1.1-1.5); ALKALINE PHOSPHATASE 99 IU/L (46-116); ANION GAP 10 (8-16); ASPARTATE AMINO TRANSFERASE 39 U/L (10-37); BILIRUBIN,TOTAL 0.4 MG/DL (0.1-1.0); BLOOD UREA NITROGEN 10 MG/DL (7-18); BUN/CREATININE RATIO 9.8 (10.0-20.0); CALCIUM 9.1 MG/DL (8.5-10.1); CHLORIDE 103 MMOL/L (99-107); CREATININE 1.02 MG/DL (0.40-0.90); GLUCOSE 249 MG/DL (70-104); LIPASE 20 U/L (16-77); POTASSIUM 4.3 MMOL/L (3.5-5.1); SODIUM 136 MMOL/L (135-145); TOTAL CARBON DIOXIDE 22.7 MMOL/L (24-32); TOTAL PROTEIN 7.4 G/DL (6.4-8.2); eCRCL 42 ML/MIN; eGFR 53 ML/MIN
[2024-08-18 14:18] LABS: BILIRUBIN,URINE NEGATIVE (Neg); CLARITY,URINE SLIGHTLY CLOUDY (Clear); COLOR,URINE YELLOW (Yellow); GLUCOSE, URINE 100 mg/dl (Neg); KETONES,URINE NEGATIVE (Neg); LEUKOCYTE ESTERASE ,URINE TRACE (Neg); NITRITES, URINE NEGATIVE (Neg); OCCULT BLOOD,URINE NEGATIVE (Neg); PROTEIN,URINE 30 mg/dl (Neg); UROBILINOGEN,URINE 0.2 E.U/dL (0.2-1.0)
[2024-08-18 14:21] LABS: UA COLLECTION TYPE CLN CATCH MIDSTREAM
[2024-08-18 14:33] LABS: BACTERIA,URINE 2+ /HPF (Neg); MUCUS STRANDS NONE SEEN /LPF (Neg); RBC,URINE NONE SEEN /HPF (0-2); SQUAMOUS EPITHELIAL CELL,UR MANY /LPF (FEW); TRANSITIONAL EPI CELLS,URINE FEW /HPF
[2024-08-18] MEDS: acetaminophen 1,000mg/100ml IV 100 ML IV ONE (15:33)
[2024-08-18] MEDS ORDERED: CYCL-1 PO (15:35)
[2024-08-18 16:05] VITALS: BP 187/81; PULSE 70; RESP 20; TEMP 98.8; O2SAT 96
== END 2024-08-18 16:07 | disposition home or self-care (01) ==
LOC: ER 12:41
DX: M54.6 Pain in thoracic spine (principal); I10 Essential (primary) hypertension; J44.9 Chronic obstructive pulmonary disease, unspecified; E11.9 Type 2 diabetes mellitus without complications; F41.9 Anxiety disorder, unspecified; R19.7 Diarrhea, unspecified; Z88.2 Allergy status to sulfonamides; Z88.5 Allergy status to narcotic agent; Z88.8 Allergy status to other drugs, medicaments and biological substances; Z88.6 Allergy status to analgesic agent; Z79.899 Other long term (current) drug therapy; Z98.890 Other specified postprocedural states; Z90.49 Acquired absence of other specified parts of digestive tract; Z79.4 Long term (current) use of insulin
CPT/HCPCS: 36415; 74176; 80053; 81001; 83690; 85025; 96374; 99285; J0131; 70450

== ENCOUNTER 2024-09-24 11:23 | Inpatient (IN) | payer MEDICARE, OTHER ==
[~2024-09-24] VITALS: Ht 160 cm; Wt 115.0 kg
[~2024-09-24 11:23] MED LIST changes: -ACET160S PO; +CYCL-1 PO; -IBUP-2766 PO
[2024-09-24 12:05] LABS: EOSINOPHILS # (AUTO) 0.2 X10'3 (0-0.9); LYMPHOCYTES % (AUTO) 25.4 % (21-51); MEAN CORPUSCULAR HEMOGLOBIN 30.6 PG (27.0-31.0); MEAN CORPUSCULAR VOLUME 91.5 FL (78-98); NEUTROPHILS # (AUTO) 3.2 X10'3 (1.8-7.7); WHITE BLOOD COUNT 5.3 X10'3 (4.5-11.0)
[2024-09-24 12:06] LABS: BASOPHILS % (AUTO) 0.8 % (0-1); EOSINOPHILS % (AUTO) 4.7 % (0-6); HEMATOCRIT 47.4 % (35.0-45.0); HEMOGLOBIN 15.9 g/dl (12.0-16.0); LYMPHOCYTES # (AUTO) 1.4 X10'3 (1.1-4.8); MEAN CORPUSCULAR HGB CONC 33.5 g/dL (33.0-36.5); MEAN PLATELET VOLUME 9.9 FL (7.4-10.4); MONOCYTES # (AUTO) 0.5 X10'3 (0-0.9); MONOCYTES % (AUTO) 8.6 % (2-12); NEUTROPHILS % (AUTO) 60.5 % (42-75); PLATELET COUNT 219 X10'3 (140-440); RED BLOOD COUNT 5.18 X10'6 (4.20-5.60); RED CELL DISTRIBUTION WIDTH 13.4 % (11.5-14.5)
[2024-09-24 12:12] LABS: ALANINE AMINOTRANSFERASE 17 U/L (12-78); ALBUMIN 3.5 G/DL (3.4-5.0); ALBUMIN/GLOBULIN RATIO 0.9 (1.1-1.5); ALKALINE PHOSPHATASE 92 IU/L (46-116); ANION GAP 9 (8-16); ASPARTATE AMINO TRANSFERASE 31 U/L (10-37); BILIRUBIN,TOTAL 0.6 MG/DL (0.1-1.0); BLOOD UREA NITROGEN 10 MG/DL (7-18); BUN/CREATININE RATIO 10.6 (10.0-20.0); CALCIUM 9.3 MG/DL (8.5-10.1); CHLORIDE 106 MMOL/L (99-107); CREATININE 0.94 MG/DL (0.40-0.90); GLUCOSE 162 MG/DL (70-104); SODIUM 143 MMOL/L (135-145); TOTAL CARBON DIOXIDE 27.6 MMOL/L (24-32); TOTAL PROTEIN 7.4 G/DL (6.4-8.2); eCRCL 45 ML/MIN; eGFR 59 ML/MIN
[2024-09-24 12:20] LABS: PRO BRAIN NATRIURETIC PEPTIDE 94 PG/ML (0-125)
[2024-09-24 13:47] LABS: LARGE PLATELETS FEW; PLATELET ESTIMATE NORMAL
[2024-09-24] MEDS ORDERED: aspirin 325mg tablet, delayed-release (Ecotrin) PO ONE (14:15)
[2024-09-24] MEDS: morphine 4 MG/ML inj SYRINge ONE (14:16)
[2024-09-24] MEDS: morphine 4 MG/ML inj SYRINge IV ONE (14:17)
[2024-09-24] MEDS: aspirin 81mg tab.chew PO ONE (14:22)
[2024-09-24] MEDS: heparin 10,000 units/1 ML INJ IV ONE ×2 (15:00→15:34)
[2024-09-24] MEDS: MESSAGE TO NURSING IV ONE (15:10)
[2024-09-24] MEDS: LORazepam 2 mg/ml vial IV ONE (15:15)
[2024-09-24 15:20] LABS: APTT 27 SECONDS (22-32); D-DIMER 0.38 MG/L FEU (0-0.50); PROTHROMBIN TIME 10.9 SECONDS (9.0-12.0)
[2024-09-24] MEDS: heparin 25,000 UNIT/250ml bag 250 ML IV PRN (15:36)
[2024-09-24] MEDS: nitroGLYCERIN-Tridil 50MG/D5W 250 ML IV PRN (15:39)
[2024-09-24 15:55] LABS: PRO BRAIN NATRIURETIC PEPTIDE 121 PG/ML (0-125)
[2024-09-24] MEDS ORDERED: potassium Cl 40MEQ/1/2NS 520ml 520 ML IV PRN (16:05)
[2024-09-24] MEDS ORDERED: glucagon, human recombinant 1mg kit SUBCUT PRN (16:05)
[2024-09-24] MEDS ORDERED: dextrose 50%-water 50ml dispensing syringe IV PRN ×2 (16:05)
[2024-09-24] MEDS ORDERED: DEXTROSE 15 GM of carb/4 tabs (each vial/BOTTLE has 4 tablets) PO PRN ×2 (16:05)
[2024-09-24] MEDS ORDERED: potassium Cl 20 mEq SR tablet PO PRN ×2 (16:05)
[2024-09-24] MEDS: PERFLUTREN PROTEIN-A MICROSPHR (Optison) 0.22 MG/ML 3ML VIAL IV ONE (16:05)
[2024-09-24] MEDS ORDERED: morphine 2 MG/ML inj. syringe IV PRN ×2 (16:05)
[2024-09-24] MEDS ORDERED: mag hydrox/Alum hydrox/simeth 30ml oral suspension PO PRN (16:05)
[2024-09-24] MEDS ORDERED: magnesium sulf-water 4G/100mL 100 ML IV PRN (16:05)
[2024-09-24] MEDS ORDERED: magnesium hydroxide 30ml (MOM) UD suspension PO PRN (16:05)
[2024-09-24] MEDS ORDERED: magnesium sulf-water 2g/50mL 50 ML IV PRN (16:05)
[2024-09-24 16:58] LABS: HEMOGLOBIN A1C 6.8 % (4.5-6.2)
[2024-09-24] MEDS: INSULIN LISPRO 100 UNIT/ML INSULN.PEN MULTI-DOSE SQ SCH (17:00)
[2024-09-24] MEDS ORDERED: INSU300I SQ (18:54)
[2024-09-24] MEDS ORDERED: RISP0.5T45 PO (18:54)
[2024-09-24] MEDS ORDERED: DILT120T3 PO (18:54)
[2024-09-24] MEDS ORDERED: metoprolol tartrate 1mg/ml inj IV PRN (19:15)
[2024-09-24] MEDS ORDERED: nitroGLYCERIN 0.4mg SUBLingual tab SL PRN (19:15)
[2024-09-24 19:45] LABS: BASOPHILS # (AUTO) 0.1 X10'3 (0-0.2); BASOPHILS % (AUTO) 1.2 % (0-1); EOSINOPHILS # (AUTO) 0.1 X10'3 (0-0.9); EOSINOPHILS % (AUTO) 1.3 % (0-6); HEMATOCRIT 44.2 % (35.0-45.0); HEMOGLOBIN 14.7 g/dl (12.0-16.0); LYMPHOCYTES % (AUTO) 26.7 % (21-51); MEAN CORPUSCULAR HEMOGLOBIN 30.4 PG (27.0-31.0); MEAN CORPUSCULAR HGB CONC 33.2 g/dL (33.0-36.5); MEAN CORPUSCULAR VOLUME 91.7 FL (78-98); MEAN PLATELET VOLUME 9.6 FL (7.4-10.4); MONOCYTES # (AUTO) 0.5 X10'3 (0-0.9); MONOCYTES % (AUTO) 7.2 % (2-12); NEUTROPHILS # (AUTO) 4.7 X10'3 (1.8-7.7); NEUTROPHILS % (AUTO) 63.6 % (42-75); PLATELET COUNT 230 X10'3 (140-440); RED BLOOD COUNT 4.82 X10'6 (4.20-5.60); RED CELL DISTRIBUTION WIDTH 13.7 % (11.5-14.5); WHITE BLOOD COUNT 7.4 X10'3 (4.5-11.0)
[2024-09-24 19:59] LABS: ALANINE AMINOTRANSFERASE 12 U/L (12-78); ALBUMIN 3.2 G/DL (3.4-5.0); ALBUMIN/GLOBULIN RATIO 0.9 (1.1-1.5); ALKALINE PHOSPHATASE 85 IU/L (46-116); ANION GAP 8 (8-16); ASPARTATE AMINO TRANSFERASE 33 U/L (10-37); BILIRUBIN,TOTAL 0.5 MG/DL (0.1-1.0); BLOOD UREA NITROGEN 11 MG/DL (7-18); BUN/CREATININE RATIO 12.1 (10.0-20.0); CALCIUM 8.8 MG/DL (8.5-10.1); CHLORIDE 109 MMOL/L (99-107); CREATININE 0.91 MG/DL (0.40-0.90); GLUCOSE 178 MG/DL (70-104); POTASSIUM 4.2 MMOL/L (3.5-5.1); SODIUM 142 MMOL/L (135-145); TOTAL CARBON DIOXIDE 25.2 MMOL/L (24-32); TOTAL PROTEIN 6.9 G/DL (6.4-8.2); eCRCL 47 ML/MIN; eGFR 61 ML/MIN
[2024-09-24] MEDS: K and/or MAG REPLACEMENT MC SCH (20:00)
[2024-09-24 20:10] LABS: PRO BRAIN NATRIURETIC PEPTIDE 129 PG/ML (0-125)
[2024-09-24] MEDS: docusate sod 100mg capsule PO SCH (20:11)
[2024-09-25] VITALS (26 sets, daily range): BP systolic 91–156; BP diastolic 47–73; PULSE 57–102; RESP 12–20; TEMP 97.7–99.3; O2SAT 92–97
[2024-09-25] MEDS: MESSAGE TO NURSING IV ONE ×2 (02:15→08:37)
[2024-09-25] MEDS: diphenhydrAMINE 25mg capsule PO PRN (04:48)
[2024-09-25] MEDS: acetaminophen 325mg tablet PO PRN (04:49)
[2024-09-25 06:47] LABS: BASOPHILS % (AUTO) 0.5 % (0-1); EOSINOPHILS # (AUTO) 0.1 X10'3 (0-0.9); EOSINOPHILS % (AUTO) 1.2 % (0-6); HEMATOCRIT 40.2 % (35.0-45.0); HEMOGLOBIN 13.8 g/dl (12.0-16.0); LYMPHOCYTES # (AUTO) 1.1 X10'3 (1.1-4.8); LYMPHOCYTES % (AUTO) 12.4 % (21-51); MEAN CORPUSCULAR HEMOGLOBIN 31.2 PG (27.0-31.0); MEAN CORPUSCULAR HGB CONC 34.3 g/dL (33.0-36.5); MEAN CORPUSCULAR VOLUME 91.2 FL (78-98); MEAN PLATELET VOLUME 9.5 FL (7.4-10.4); MONOCYTES # (AUTO) 0.7 X10'3 (0-0.9); NEUTROPHILS # (AUTO) 6.8 X10'3 (1.8-7.7); NEUTROPHILS % (AUTO) 77.9 % (42-75); PLATELET COUNT 198 X10'3 (140-440); RED BLOOD COUNT 4.41 X10'6 (4.20-5.60); RED CELL DISTRIBUTION WIDTH 13.6 % (11.5-14.5); WHITE BLOOD COUNT 8.7 X10'3 (4.5-11.0)
[2024-09-25 07:13] LABS: ALANINE AMINOTRANSFERASE 11 U/L (12-78); ALBUMIN/GLOBULIN RATIO 0.9 (1.1-1.5); ALKALINE PHOSPHATASE 77 IU/L (46-116); ANION GAP 6 (8-16); ASPARTATE AMINO TRANSFERASE 30 U/L (10-37); BILIRUBIN,TOTAL 0.3 MG/DL (0.1-1.0); BLOOD UREA NITROGEN 12 MG/DL (7-18); BUN/CREATININE RATIO 13.5 (10.0-20.0); CALCIUM 8.6 MG/DL (8.5-10.1); CHLORIDE 104 MMOL/L (99-107); CHOL/HDL RATIO 2.5 (0.00-4.99); CHOLESTEROL 125 MG/DL (0-200); CREATININE 0.89 MG/DL (0.40-0.90); GLUCOSE 127 MG/DL (70-104); HDL CHOLESTEROL 50 MG/DL (35-60); LDL CHOLESTEROL 54 MG/DL (50-100); MAGNESIUM 1.9 MG/DL (1.5-2.4); POTASSIUM 3.6 MMOL/L (3.5-5.1); SODIUM 136 MMOL/L (135-145); TOTAL PROTEIN 6.2 G/DL (6.4-8.2); TRIGLYCERIDES 167 MG/DL (20-135); eCRCL 48 ML/MIN; eGFR 63 ML/MIN
[2024-09-25] MEDS: heparin 10,000 units/1 ML INJ IV PRN (08:30)
[2024-09-25] MEDS: ondansetron/PF 4mg/2ml inj IV PRN (10:35)
[2024-09-25] MEDS: regadenoson 0.4mg/5ml syringe IV PRN (10:36)
[2024-09-25] MEDS: aminophylline 250mg/10ml inj. IV PRN (10:37)
[2024-09-25] MEDS ORDERED: cetirizine 10mg tablet PO PRN (17:15)
[2024-09-25] MEDS: nitroGLYCERIN-Tridil 50MG/D5W 250 ML IV SCH ×3 (18:00→19:37)
[2024-09-25] MEDS: diltiazem CD 120mg capsule (once-daily) PO ONE (18:04)
[2024-09-25] MEDS: aspirin 81mg tab.chew PO SCH (18:04)
[2024-09-25] MEDS ORDERED: nitroGLYCERIN-Tridil 50MG/D5W 250 ML IV SCH (19:40)
[2024-09-25] MEDS: budesonide 0.5mg/2ml UD nebule IH SCH (20:00)
[2024-09-26] VITALS (8 sets, daily range): BP systolic 146–186; BP diastolic 60–72; PULSE 60–91; RESP 12–20; TEMP 97.5–97.8; O2SAT 94–97
[2024-09-26] MEDS: calcium carbonate 500mg chew tablet PO SCH (00:22)
[2024-09-26] MEDS ORDERED: diltiazem CD 120mg capsule (once-daily) PO ONE (04:50)
[2024-09-26] MEDS: diltiazem CD 120mg capsule (once-daily) PO ONE (05:07)
[2024-09-26 07:41] LABS: ALANINE AMINOTRANSFERASE 11 U/L (12-78); ALBUMIN/GLOBULIN RATIO 0.8 (1.1-1.5); ALKALINE PHOSPHATASE 78 IU/L (46-116); ANION GAP 5 (8-16); ASPARTATE AMINO TRANSFERASE 28 U/L (10-37); BILIRUBIN,TOTAL 0.5 MG/DL (0.1-1.0); BLOOD UREA NITROGEN 12 MG/DL (7-18); BUN/CREATININE RATIO 13.3 (10.0-20.0); CALCIUM 8.8 MG/DL (8.5-10.1); CHLORIDE 105 MMOL/L (99-107); GLUCOSE 150 MG/DL (70-104); POTASSIUM 3.8 MMOL/L (3.5-5.1); SODIUM 138 MMOL/L (135-145); TOTAL CARBON DIOXIDE 28.1 MMOL/L (24-32); TOTAL PROTEIN 6.6 G/DL (6.4-8.2); eCRCL 47 ML/MIN; eGFR 62 ML/MIN
[2024-09-26] MEDS ORDERED: atorvastatin 10mg tablet PO SCH (08:00)
[2024-09-26 08:23] LABS: BASOPHILS % (AUTO) 0.7 % (0-1); EOSINOPHILS # (AUTO) 0.2 X10'3 (0-0.9); EOSINOPHILS % (AUTO) 2.9 % (0-6); HEMATOCRIT 42.7 % (35.0-45.0); HEMOGLOBIN 14.2 g/dl (12.0-16.0); LYMPHOCYTES # (AUTO) 1.3 X10'3 (1.1-4.8); LYMPHOCYTES % (AUTO) 21.8 % (21-51); MEAN CORPUSCULAR HEMOGLOBIN 30.2 PG (27.0-31.0); MEAN CORPUSCULAR HGB CONC 33.2 g/dL (33.0-36.5); MEAN CORPUSCULAR VOLUME 91.1 FL (78-98); MEAN PLATELET VOLUME 10.3 FL (7.4-10.4); MONOCYTES # (AUTO) 0.6 X10'3 (0-0.9); MONOCYTES % (AUTO) 10.6 % (2-12); NEUTROPHILS # (AUTO) 3.8 X10'3 (1.8-7.7); PLATELET COUNT 189 X10'3 (140-440); RED BLOOD COUNT 4.69 X10'6 (4.20-5.60); RED CELL DISTRIBUTION WIDTH 13.6 % (11.5-14.5)
[2024-09-26] MEDS: diltiazem CD 120mg capsule (once-daily) PO SCH (10:14)
[2024-09-26] MEDS: FLUoxetine 20mg capsule PO SCH (10:14)
[2024-09-26] MEDS: risperiDONE 0.5mg tablet PO SCH (10:15)
[2024-09-26] MEDS: BUPROPION HCL 150MG XL 24 HR 150 MG TAB PO SCH (10:15)
[2024-09-26] MEDS: cholecalciferol (vitamin D3) 1,000 unit (25mcg) tablet PO SCH (10:15)
[2024-09-26] MEDS: magnesium hydroxide 30ml (MOM) UD suspension PO PRN (10:16)
[2024-09-26] MEDS ORDERED: hydrALAZINE 20mg/ml inj. IV PRN (10:30)
[2024-09-26] MEDS ORDERED: morphine 2 MG/ML inj. syringe IV PRN (10:35)
[2024-09-26] MEDS: cloNIDine 0.3mg/24 hour patch (7 day patch) TD SCH (12:17)
[2024-09-26] MEDS ORDERED: CLON1PAT16 TD (16:06)
[2024-09-26] MEDS ORDERED: SIMV-42 PO (16:06)
[2024-09-26] MEDS ORDERED: simvastatin 20mg tablet PO SCH (17:30)
== END 2024-09-26 17:08 | disposition home or self-care (01) | DRG 281 ==
LOC: ER 11:23 → ED HOLD 16:14 → PCU 3S 09-25 03:06
PROVIDERS: ADMIT Family Medicine; ATTEND Family Medicine
PROC: 4A02XM4 Measurement of Cardiac Total Activity, External Approach (ICD-10-PCS; principal; 2024-09-25)
PROC: 3E073KZ Introduction of Other Diagnostic Substance into Coronary Artery, Percutaneous Approach (ICD-10-PCS; 2024-09-25)
DX: I16.1 Hypertensive emergency (principal); I48.20 Chronic atrial fibrillation, unspecified; I21.A1 Myocardial infarction type 2; Z68.41 Body mass index [BMI] 40.0-44.9, adult; I10 Essential (primary) hypertension; G47.33 Obstructive sleep apnea (adult) (pediatric); E11.9 Type 2 diabetes mellitus without complications; E78.5 Hyperlipidemia, unspecified; F41.9 Anxiety disorder, unspecified; Z79.84 Long term (current) use of oral hypoglycemic drugs; Z83.3 Family history of diabetes mellitus; Z91.011 Allergy to milk products; Z79.4 Long term (current) use of insulin; Z79.51 Long term (current) use of inhaled steroids; Z79.82 Long term (current) use of aspirin; Z79.899 Other long term (current) drug therapy; Z80.0 Family history of malignant neoplasm of digestive organs; Z80.3 Family history of malignant neoplasm of breast; Z88.2 Allergy status to sulfonamides; Z88.5 Allergy status to narcotic agent; Z88.6 Allergy status to analgesic agent; Z90.49 Acquired absence of other specified parts of digestive tract; Z90.710 Acquired absence of both cervix and uterus
CPT/HCPCS: 36415; 71045; 78452; 80053; 80061; 82948; 83036; 83735; 83880; 84145; 84484; 85008; 85025; 85379; 85610; 85730; 93005; 93017; 93308; 94760; 99285; A9500; G0378; J0280; J1644; J1815; J2060; J2270; J2405; J2785; J3490; J7030; Q0163

== ENCOUNTER 2025-03-09 08:41 | Day surgery (SDC) | payer MEDICARE, MEDICAID ==
[2025-02-25 14:41] LABS: BASOPHILS # (AUTO) 0.1 X10'3 (0-0.2); EOSINOPHILS # (AUTO) 0.2 X10'3 (0-0.9); EOSINOPHILS % (AUTO) 2.2 % (0-6); HEMOGLOBIN 15.3 g/dl (12.0-16.0); MONOCYTES # (AUTO) 0.7 X10'3 (0-0.9); RED CELL DISTRIBUTION WIDTH 13.6 % (11.5-14.5); WHITE BLOOD COUNT 7.1 X10'3 (4.5-11.0)
[2025-02-25 14:43] LABS: BASOPHILS % (AUTO) 1.3 % (0-1); HEMATOCRIT 46.4 % (35.0-45.0); LYMPHOCYTES # (AUTO) 1.6 X10'3 (1.1-4.8); MEAN CORPUSCULAR HEMOGLOBIN 29.5 PG (27.0-31.0); MEAN CORPUSCULAR HGB CONC 32.9 g/dL (33.0-36.5); MEAN CORPUSCULAR VOLUME 89.6 FL (78-98); MEAN PLATELET VOLUME 9.8 FL (7.4-10.4); MONOCYTES % (AUTO) 10.4 % (2-12); NEUTROPHILS # (AUTO) 4.5 X10'3 (1.8-7.7); NEUTROPHILS % (AUTO) 64.1 % (42-75); PLATELET COUNT 267 X10'3 (140-440); RED BLOOD COUNT 5.18 X10'6 (4.20-5.60)
[2025-02-25 14:58] LABS: ALANINE AMINOTRANSFERASE 17 U/L (12-78); ALBUMIN 3.4 G/DL (3.4-5.0); ALBUMIN/GLOBULIN RATIO 0.9 (1.1-1.5); ALKALINE PHOSPHATASE 130 IU/L (46-116); ANION GAP 6 (8-16); ASPARTATE AMINO TRANSFERASE 33 U/L (10-37); BILIRUBIN,TOTAL 0.3 MG/DL (0.1-1.0); BLOOD UREA NITROGEN 16 MG/DL (7-18); BUN/CREATININE RATIO 15.7 (10.0-20.0); CHLORIDE 104 MMOL/L (99-107); CREATININE 1.02 MG/DL (0.40-0.90); GLUCOSE 158 MG/DL (70-104); POTASSIUM 4.1 MMOL/L (3.5-5.1); SODIUM 139 MMOL/L (135-145); TOTAL CARBON DIOXIDE 29.1 MMOL/L (24-32); TOTAL PROTEIN 7.1 G/DL (6.4-8.2); eGFR 53 ML/MIN
[~2025-03-09] VITALS: Ht 160 cm; Wt 116.5 kg
[2025-03-09] VITALS (13 sets, daily range): BP systolic 130–187; BP diastolic 63–76; PULSE 48–67; RESP 9–17; TEMP 96.9; O2SAT 87–98
[2025-03-09] MEDS: clindamycin-Cleocin 900mg/D5W 50 ML IV ONE (05:30)
[~2025-03-09 08:41] MED LIST changes: -ALBU18HF2 PO; +ASPI-1397 PO; -ATOR10TA70 PO; -BUPR-561 PO; +BUPR-726 PO; -CARCD120C PO; -CETI-272 PO; +CETI10TA19 PO; +CYAN10007 IM; -CYCL-1 PO; +DILT120T3 PO; +DIPH25CA51 PO; +DOCU-392 PO; -ESTR1PAT30 TD; -FLO110IN PO; +FLUT12AE21 IH; +INSU300I3 SQ; -LANTUS SUBCUT; -NOVLG SQ; -NYSPWD TOP; +OMEP40CA21 PO; +RISP0.5T45 PO; +SIMV10TA98 PO; +labetalol 20mg/4ml (5mg/ml) syringe IV PRN; +meperidine/PF 25mg/ml syringe IV PRN; +morphine 2 MG/ML inj. syringe IV PRN; +morphine 4 MG/ML inj SYRINge IV PRN; +ondansetron/PF 4mg/2ml inj IV PRN; +proCHLORperazine 10 MG/2 ml inj IV PRN; +ringers solution, lacted 1,000 ML IV SCH
[2025-03-09] MEDS: albuterol 2.5 MG/3 ML nebule NEB ONE (10:03)
[2025-03-09] MEDS: famotidine 20mg tablet PO ONE (10:05)
[2025-03-09] MEDS: ringers solution, lacted 1,000 ML IV SCH (10:05)
[2025-03-09] MEDS ORDERED: fentaNYL/PF 50MCG/1 ML 2ML syringe ONE (11:17)
[2025-03-09] MEDS ORDERED: midazolam 1 mg/ML 2ml injection ONE (11:18)
[2025-03-09] MEDS ORDERED: LIDOcaine 2% (20mg/ml) 5ml vial ONE (11:20)
[2025-03-09] MEDS ORDERED: BUPIVAcaine/PF 2.5mg/ml (0.25%) 10ml vial ONE ×2 (11:20→12:09)
[2025-03-09] MEDS ORDERED: sevoflurane 250ml liquid IH ONE (11:34)
[2025-03-09] MEDS: BUPIVAcaine/PF 2.5mg/ml (0.25%) 10ml vial IJ ONE (11:35)
[2025-03-09] MEDS: enalaprilat 1.25mg/ml 2ml vial IV PRN (12:49)
== END 2025-03-09 14:19 | disposition home or self-care (01) ==
LOC: PAS 08:41
PROVIDERS: ATTEND Orthopaedic Surgery Hand Surgery
DX: G56.02 Carpal tunnel syndrome, left upper limb (principal); M18.12 Unilateral primary osteoarthritis of first carpometacarpal joint, left hand; K21.9 Gastro-esophageal reflux disease without esophagitis; F41.9 Anxiety disorder, unspecified; I10 Essential (primary) hypertension; I25.2 Old myocardial infarction; Z90.49 Acquired absence of other specified parts of digestive tract; Z98.890 Other specified postprocedural states; Z88.6 Allergy status to analgesic agent; Z90.710 Acquired absence of both cervix and uterus; Z79.899 Other long term (current) drug therapy; Z87.891 Personal history of nicotine dependence; Z88.2 Allergy status to sulfonamides; Z83.3 Family history of diabetes mellitus
CPT/HCPCS: 25448; 64721; 80053; 82948; 85025; 94640; 94760; A4215; A4618; A6449; A7000; C1713; J1885; J2003; J2250; J2405; J2704; J3010; J3490; J7030; J7120; Z7506; Z7512; Z7610

== ENCOUNTER 2025-08-10 06:15 | Day surgery (SDC) | payer MEDICARE, MEDICAID ==
[~2025-08-10] VITALS: Ht 160 cm; Wt 117.9 kg
[2025-08-10] MEDS: clindamycin-Cleocin 900mg/D5W 50 ML IV ONE (05:30)
[~2025-08-10 06:15] MED LIST changes: -DIPH25CA51 PO; -RISP0.5T45 PO; +RISP0.5T80 PO; +SEMA1PEN3 SUBCUT; -labetalol 20mg/4ml (5mg/ml) syringe IV PRN; -meperidine/PF 25mg/ml syringe IV PRN; -morphine 2 MG/ML inj. syringe IV PRN; -morphine 4 MG/ML inj SYRINge IV PRN; -ondansetron/PF 4mg/2ml inj IV PRN; -proCHLORperazine 10 MG/2 ml inj IV PRN; -ringers solution, lacted 1,000 ML IV SCH
[2025-08-10 06:31] VITALS: BP 200/79; PULSE 52; RESP 16; TEMP 97.6; O2SAT 95
[2025-08-10] MEDS ORDERED: BUPIVAcaine 2.5mg/ml inj 50ml vial (contains preservative) ONE (07:05)
[2025-08-10] MEDS ORDERED: LIDOcaine 2% (20mg/ml) 5ml vial ONE (07:05)
[2025-08-10] MEDS: ringers solution, lacted 1,000 ML IV SCH ×2 (07:20→09:00)
--- NOTE | 2025-08-10 07:24 | ELECTROCARDIOGRAPH REPORT ---
[facility] Test Date: 2025-08-10 Test Time: 07:22:19 Pat Name: RHEA MABRY Department: [facility] Patient ID: [facility]-[id number] Room: Gender: F Child Therapist: DA : 1955 Requested By: DAYSI SONG Order Number: [id number] Reading MD: Dr. ZAINAB García Measurements Intervals Harrison Rate: 53 P: 63 WA: 218 QRS: 105 QRSD: 85 T: 10 QT: 442 QTc: 415 Interpretive Statements Sinus bradycardia Borderline prolonged WA interval Right axis deviation Low voltage, extremity leads Electronically Signed On 08-10-2025 16:06:[address] ZAINAB García Please click the below link to view image of tracing.
[2025-08-10] MEDS ORDERED: triamcinolone acetonide 40mg/ml inj ONE (07:41)
[2025-08-10] MEDS ORDERED: fentaNYL/PF 50MCG/1 ML 2ML syringe ONE (08:02)
[2025-08-10] MEDS ORDERED: midazolam 1 mg/ML 2ml injection ONE (08:02)
[2025-08-10 08:18] LABS: MEAN PLATELET VOLUME 10.4 FL (7.4-10.4); PRE OP HEMATOCRIT 45.9 % (35.0-45.0); PRE OP HEMOGLOBIN 15.3 g/dL (12.0-16.0); PRE OP PLATELET COUNT 215 X10'3 (140-440); PRE OP WHITE BLOOD COUNT 6.7 10'3 (4.8-10.8); RED CELL DISTRIBUTION WIDTH 13.9 % (11.5-14.5)
[2025-08-10] MEDS: triamcinolone acetonide 40mg/ml inj IJ ONE (08:24)
[2025-08-10] MEDS: LIDOcaine 2% (20mg/ml) 5ml vial SQ ONE (08:24)
[2025-08-10 08:42] LABS: CREATININE 0.87 MG/DL (0.40-0.90); PRE OP ALT 15 U/L (30-65); PRE OP ANION GAP 10 (8-16); PRE OP AST 31 U/L (10-37); PRE OP BILIRUB, TOTAL 0.4 MG/DL (0.0-1.0); PRE OP GLUCOSE 130 MG/DL (70-104); PRE OP POTASSIUM 4.1 MMOL/L (3.4-5.1); PRE OP SODIUM 145 MMOL/L (135-145); TOTAL CARBON DIOXIDE 27.7 MMOL/L (24-32); eCRCL 48 ML/MIN; eGFR 64 ML/MIN
[2025-08-10] MEDS ORDERED: LIDOcaine 0.5% (5mg/ml) 50ml vial ONE (08:46)
[2025-08-10] MEDS ORDERED: propofol inj 20 ML IV ONE (08:46)
[2025-08-10] MEDS ORDERED: hydrALAZINE 20mg/ml inj. ONE (08:47)
[2025-08-10] MEDS: BUPIVAcaine/PF 2.5 mg/ml (0.25%) 30ml vial IJ ONE (08:47)
[2025-08-10 08:53] VITALS: BP 150/71; PULSE 76; RESP 14; O2SAT 98
[2025-08-10] MEDS ORDERED: HYDROmorphone/PF 0.2 MG/ML SYRINGE IV PRN ×2 (09:00)
[2025-08-10] MEDS ORDERED: ondansetron/PF 4mg/2ml inj IV PRN (09:00)
[2025-08-10] MEDS ORDERED: hydrALAZINE 20mg/ml inj. IV PRN (09:00)
[2025-08-10] MEDS ORDERED: morphine 4 MG/ML inj SYRINge IV PRN (09:00)
[2025-08-10 09:05] VITALS: BP 161/72; PULSE 81; RESP 14; O2SAT 96
[2025-08-10 09:15] VITALS: BP 158/69; PULSE 73; RESP 16; O2SAT 95
[2025-08-10 09:25] VITALS: BP 167/70; PULSE 71; RESP 17; O2SAT 96
--- NOTE | 2025-08-10 09:32 | OPERATIVE REPORT ---
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 Post-Operative Diagnosis SAME as PRE-Op Procedure Performed A revision suspension plasty left thumb carpometacarpal joint with the abductor pollicis tendon Surgeon: Grupo Stout MD Communication Clerk None Anesthesiologist: Carlos A Bajwa Type of Anesthesia: Regional Findings: Failure of the corkscrew anchor in the base of the thumb metacarpal Complications None Prosthetics\Implants used: None Estimated Blood Loss: None Specimen Removed: A failed corkscrew was removed but not sent to pathology Description of Procedure: The patient is a 70-year-old woman who underwent suspension plasty using the anchor line suture which consists of metallic anchors in the base of the 2nd and base of the 1st metacarpal. She did well initially but then had pain and subsidence of the metacarpal. Surgery is indicated to relieve symptoms. Risks and benefits were discussed with the patient. The main risk is failure to achieve desired result but also by potential numbness and a tendon injury from scar tissue. She agreed to proceed. She was brought to the operating room where the anesthetic and antibiotics were given. The arm was prepped and draped in usual manner. The previous surgical scar was outlined and incised in the thumb. Small bleeders were cauterized and dissection was taken down to the surgical site. The abductor and short extensor tendon of the thumb were reflected radially and scar tissue over the CMC area was excised. We found that the anchor that had been placed in the base of the thumb metacarpal head pulled out and broke in the cortex and was sitting in the soft tissues. This was removed as was the scar tissue at the CMC joint. The other corkscrew remained intact in the 2nd metacarpal. We could not identify the flexor carpi radialis so a distally based slip of the abductor pollicis longus was used to complete the suspension plasty. This was brought along the base of the thumb metacarpal and sutured to the deeper tissues creating a suspension for the metacarpal. A no tendon interposition was done. The thumb was suspended in good position at this point it did not subside into the scaphoid so the incision was irrigated and closed in layers. Marcaine was injected and a sterile dressing was applied including a splint. The tourniquet was released the hand perfused well. The patient was taken to the recovery room in stable condition and tolerated the procedure well GRUPO STOUT Jr., MD Aug 10, 2025 09:32
[2025-08-10 09:35] VITALS: BP 175/62; PULSE 67; RESP 15; O2SAT 97
== END 2025-08-10 10:03 | disposition home or self-care (01) ==
LOC: PAS 06:15
PROVIDERS: ATTEND Orthopaedic Surgery Hand Surgery
DX: M18.12 Unilateral primary osteoarthritis of first carpometacarpal joint, left hand (principal); R94.31 Abnormal electrocardiogram [ECG] [EKG]; I10 Essential (primary) hypertension; E11.9 Type 2 diabetes mellitus without complications; E66.9 Obesity, unspecified; I25.10 Atherosclerotic heart disease of native coronary artery without angina pectoris; F41.9 Anxiety disorder, unspecified; K21.9 Gastro-esophageal reflux disease without esophagitis; G47.30 Sleep apnea, unspecified; I25.2 Old myocardial infarction; Z87.891 Personal history of nicotine dependence; Z79.82 Long term (current) use of aspirin; Z79.899 Other long term (current) drug therapy; Z90.49 Acquired absence of other specified parts of digestive tract; Z90.89 Acquired absence of other organs; Z90.710 Acquired absence of both cervix and uterus; Z98.890 Other specified postprocedural states; Z68.42 Body mass index [BMI] 45.0-49.9, adult; Z88.0 Allergy status to penicillin; Z88.2 Allergy status to sulfonamides; Z88.5 Allergy status to narcotic agent; Z91.013 Allergy to seafood; Z91.041 Radiographic dye allergy status; Z88.8 Allergy status to other drugs, medicaments and biological substances
CPT/HCPCS: 25448; 36415; 80053; 85025; 93005; A4215; A4618; A6449; J0360; J2003; J2250; J2704; J3010; J3301; J3490; J7030; J7120; Z7506; Z7512; Z7610